=== PATIENT | male | born 1970 | race Caucasian/White ===

== ENCOUNTER 2020-02-09 | Outpatient (REF) | payer MEDICAID, SELFPAY ==
[2020-02-18 10:51] LABS: FIT Int Ctl YES; FIT1 NEGATIVE (NEGATIVE); FIT2 NEGATIVE (NEGATIVE)
== END 2020-02-09 00:01 ==
LOC: HO.LNP
PROVIDERS: Visit Provider Internal Medicine Gastroenterology
DX: Z12.11 Encounter for screening for malignant neoplasm of colon (principal)
CPT/HCPCS: 82274

== ENCOUNTER 2020-02-18 10:15 | Outpatient (REF) | payer MEDICAID, SELFPAY | END 2020-02-18 10:16 | disposition home or self-care (01) | LOC: HO.LNP 10:15 | PROVIDERS: Visit Provider Internal Medicine Gastroenterology | DX: Z13.89 Encounter for screening for other disorder (principal) ==

== ENCOUNTER 2020-03-30 16:11 | Outpatient (REF) | payer MEDICAID, SELFPAY ==
[2020-03-30 16:39] LABS: MANUAL DIFF FLAG NO
[2020-03-30 16:41] LABS: Basophils Percent Auto 0.4 % (0-2); Eosinophils Percent Auto 0.6 % (0-4); Hematocrit 33.8 % (42-52); Hemoglobin 11.8 g/dl (14.0-18.0); Imm Gran Abs Auto 0.02 X10*3/uL (0.00-0.03); Imm Gran Pct Auto 0.4 % (0.0-0.4); Lymphocytes Absolute Auto 1.5 X10*3/uL (1.2-4.9); Lymphocytes Percent Auto 30.8 % (20-40); Mean Corpuscular HGB Conc 34.9 g/dl (31.0-36.0); Mean Corpuscular Hemoglobin 31.1 pg (27.0-33.0); Mean Corpuscular Volume 88.9 fL (80-98); Mean Platelet Volume 9.7 fL (9.4-12.4); Monocytes Absolute Auto 0.6 X10*3/uL (0.1-1.2); Monocytes Percent Auto 11.6 % (2-11); Neutrophils Absolute Auto 2.7 X10*3/uL (2.0-8.3); Neutrophils Percent Auto 56.2 % (45-73); Red Cell Distribution Width 14.6 % (11.0-16.0); White Blood Count 4.8 X10*3/uL (4.8-10.8)
[2020-03-30 16:46] LABS: INTERNATIONAL NORM RATIO 1.4 (0.9-1.1); Prothrombin Time 16.5 SEC (10.8-13.0)
[2020-03-30 17:02] LABS: Platelet Count 69 X10*3/uL (160-400)
[2020-03-30 17:08] LABS: Alanine Aminotransferase 34 U/L (0-40); Albumin Level 3.4 g/dL (3.5-5.0); Alkaline Phosphatase 176 U/L (39-117); Anion Gap 10 (12-20); Aspartate Amino Transferase 127 U/L (5-37); Bilirubin Total 1.6 mg/dL (0.0-1.0); Blood Urea Nitrogen 4 mg/dL (9-16); Calcium 8.2 mg/dL (8.4-10.2); Carbon Dioxide 28 mmol/L (22-29); Chloride 105 mmol/L (96-108); Estimated Glomerular Filt Rate > 60; Glucose Random 117 mg/dL (60-115); Potassium 3.5 mmol/l (3.3-5.1); Sodium 139 mmol/L (135-145); Total Protein 7.9 g/dL (6.5-8.0)
[2020-03-30 17:26] LABS: Gamma Glutamyl Transpeptidase 600 U/L (11-51)
[2020-03-30 17:28] LABS: Ferritin 32 ng/mL (20-250)
[2020-03-30 17:31] LABS: Vitamin B12 622 pg/mL (200-900)
[2020-03-31 07:55] LABS: Hepatitis A Antibody IgG REACTIVE (Nonreactive); ~Hepatitis A Antibody IgG 4.32 S/CO (0.00-0.99)
[2020-03-31 07:56] LABS: HBc Num1 0.15 S/CO (0.00-0.79); HBsAGNum1 0.23 S/CO (0.00-0.99); Hepatitis B Core Antibody Nonreactive (Nonreactive); Hepatitis B Surface Antigen Negative (Negative)
[2020-03-31 08:12] LABS: HBS Num1 > 1000.00 mIU/mL (0-7.99); ~HepC Num1 0.71 S/CO (0.00-0.79); ~Hepatitis B Surface Antibody REACTIVE (Nonreactive); ~Hepatitis C Antibody Nonreactive (Nonreactive)
== END 2020-03-30 16:12 | disposition home or self-care (01) ==
LOC: HO.LAB 16:11
PROVIDERS: Visit Provider Internal Medicine Gastroenterology
DX: K70.30 Alcoholic cirrhosis of liver without ascites (principal)
CPT/HCPCS: 36415; 80053; 82607; 82728; 82977; 85025; 85610; 86704; 86706; 86708; 86803; 87340

== ENCOUNTER → 2020-03-31 09:39 | Outpatient (BNVA) | payer MEDICAID, SELFPAY | PROVIDERS: PCP Internal Medicine; Referring Provider Internal Medicine; Visit Provider Internal Medicine Gastroenterology | DX: Z76.89 Persons encountering health services in other specified circumstances (principal) ==

== ENCOUNTER → 2020-04-27 14:35 | Outpatient (BNVA) | payer MEDICAID, SELFPAY | PROVIDERS: PCP Internal Medicine; Referring Provider Internal Medicine; Visit Provider Surgery Vascular Surgery | DX: I83.12 Varicose veins of left lower extremity with inflammation (principal) | CPT/HCPCS: 99202 ==

== ENCOUNTER 2020-05-31 10:32 | Outpatient (REF) | payer MEDICAID, SELFPAY ==
--- NOTE | 2020-05-31 10:36 | US_ITS ---
EXAMINATION: RIGHT and LEFT LOWER EXTREMITY VENOUS ULTRASOUND (Reflux Exam) CLINICAL INDICATION: leg pain and varicose veins. COMPARISON: None. TECHNIQUE: Color flow triplex imaging and compression Doppler was performed to evaluate both the deep and the superficial systems bilaterally. To evaluate the superficial system, the examination was performed in the upright position. Color-flow Doppler ultrasound and compression ultrasound were utilized. In addition, maneuvers were utilized to demonstrate reflux. FINDINGS: 1. DEEP VENOUS ULTRASOUND OF THE RIGHT LOWER EXTREMITY: Respiratory variation, normal compression and augmented flow are noted in the right common femoral vein as well as the right popliteal vein and there is no evidence of deep venous thrombosis at these locations. There is reflux in the common femoral, mid femoral and popliteal vein measuring 1.9 seconds, 2.5 seconds and 1.7 seconds respectively. There is no evidence of a 4.4 x 2.5 x 3.7 Byers's cyst. 2. SUPERFICIAL ULTRASOUND WITH DOPPLER OF RIGHT LOWER EXTREMITY: The right great saphenous vein at the saphenofemoral junction measures 6 mm, at the mid thigh 4 mm, [id number] 4 mm, couvb-kyo-[id number] 3 mm, at mid calf 3 mm and at the ankle measures 3 mm. There is a diffuse right greater saphenous vein reflux measuring maximum 3.3 seconds at the calf and ankle. The right small saphenous vein measures 1 - 4 mm and shows no reflux. There is a organic section technical lead in the proximal thigh that measures 5 mm and demonstrates 2.6 seconds reflux. There is a organic section technical lead in the proximal calf that measures 3 mm and demonstrates 1.1 seconds reflux. There are varicose veins measure 3 mm at the knee demonstrate 2.7 reflux and 3 mm in the proximal and distal calf that demonstrate 3.6 and 3.5 second reflux. 3. DEEP VENOUS ULTRASOUND OF THE LEFT LOWER EXTREMITY: Respiratory variation, normal compression and augmented flow are noted in the left common femoral vein as well as the left popliteal vein and there is no evidence of deep venous thrombosis at these locations. There is a reflux in the mid femoral vein measuring 2.3 seconds. There is no evidence of a Byers's cyst. 4. SUPERFICIAL ULTRASOUND WITH DOPPLER OF LEFT LOWER EXTREMITY: Left great saphenous vein at the saphenofemoral junction measures 8 mm, at the mid thigh 8 mm, gdpbz-wxv-luuw 7 mm, uquys-nqt-harf 10 mm, at mid calf 3 mm and at the ankle measures 2 mm. There is left greater saphenous vein reflux from the saphenofemoral junction to the mid calf measuring maximum 3.5 seconds in the proximal thigh. There is an accessory medial greater saphenous vein that measures 1 to 7 mm and demonstrates 2.6 seconds reflux. The left small saphenous vein measures 2-4 mm and shows no reflux. There is a organic section technical lead in the calf that measures 3 mm and demonstrates 1.2 seconds reflux. There are varicosities in the calf that measure 5 mm and demonstrate 1.9 seconds reflux, 10 mm and demonstrates 3.3 seconds reflux and 7 mm and demonstrate 1.4 seconds reflux. US/US venous duplex LE BI IMPRESSION: 1. No evidence of DVT. Right common femoral, mid femoral and popliteal vein deep venous reflux and left mid femoral vein deep venous reflux. 2. Bilateral greater saphenous vein reflux.
== END 2020-05-31 10:33 | disposition home or self-care (01) ==
LOC: HO.US 10:32
PROVIDERS: Visit Provider Surgery Vascular Surgery
DX: I83.893 Varicose veins of bilateral lower extremities with other complications (principal); I83.12 Varicose veins of left lower extremity with inflammation
CPT/HCPCS: 93970

== ENCOUNTER → 2020-06-23 09:16 | Outpatient (BNVA) | payer MEDICAID, SELFPAY | PROVIDERS: Visit Provider Internal Medicine Gastroenterology ==

== ENCOUNTER → 2020-07-29 13:15 | Outpatient (BNVA) | payer MEDICAID, SELFPAY | PROVIDERS: Visit Provider Surgery Vascular Surgery | DX: I83.12 Varicose veins of left lower extremity with inflammation (principal) | CPT/HCPCS: 99212 ==

== ENCOUNTER 2020-09-07 11:41 | Outpatient (REF) | payer MEDICAID, SELFPAY | END 2020-09-07 11:42 | disposition home or self-care (01) | LOC: HO.LAB 11:41 | PROVIDERS: Visit Provider Internal Medicine | DX: Z20.822 Contact with and (suspected) exposure to COVID-19 (principal) | CPT/HCPCS: C9803; U0003; U0005 ==

== ENCOUNTER 2020-09-09 11:47 | Outpatient (REF) | payer MEDICAID, SELFPAY | END 2020-09-09 11:48 | disposition home or self-care (01) | LOC: HO.LAB 11:47 | PROVIDERS: Visit Provider Internal Medicine | DX: Z20.822 Contact with and (suspected) exposure to COVID-19 (principal) | CPT/HCPCS: C9803; U0003; U0005 ==

== ENCOUNTER 2020-10-09 11:56 | Emergency (ER) | payer MEDICAID, SELFPAY ==
--- NOTE | ~2020-10-09 | XR_ITS ---
EXAMINATION: XR CHEST CLINICAL INFORMATION: Rib pain. COMPARISON: None TECHNIQUE: Frontal view of the chest was obtained. FINDINGS: Subtle linear opacities are seen bilaterally. No focal trait or pleural effusions are seen. The heart and mediastinal structures are unremarkable. The visualized osseous structures are unremarkable. XR/XR chest 1V IMPRESSION: Subtle linear opacities bilaterally nonspecific projectional or could represent chronic changes. An atypical infectious/inflammatory process could not be completely excluded. Correlate clinically. No acute osseous abnormality.
[2020-10-09 12:47] VITALS: BP 117/72; BP 122/86; PULSE 74; PULSE 83; RESP 16; TEMP 36.7; O2SAT 97; BMI 27.0
== END 2020-10-09 15:29 | disposition left against medical advice (07) ==
LOC: HO.ED 15:28
PROVIDERS: Emergency Provider Emergency Medicine
DX: H92.01 Otalgia, right ear (principal); R07.81 Pleurodynia
CPT/HCPCS: 71045; 99282

== ENCOUNTER 2020-12-19 16:32 | Emergency (ER) | payer MEDICAID, SELFPAY ==
--- NOTE | ~2020-12-19 | XR_ITS ---
EXAMINATION: XR KNEE, LEFT CLINICAL INFORMATION: Fall. COMPARISON: None TECHNIQUE: Four views of the left knee. FINDINGS: Bones and soft tissues are normal. No fracture or joint effusion. Alignment is anatomic. Joint spaces are well maintained. No abnormal soft tissue calcification. XR/XR knee LT 4V IMPRESSION: Normal left knee.
--- NOTE | ~2020-12-19 | XR_ITS ---
EXAMINATION: XR KNEE, RIGHT CLINICAL INFORMATION: Fall. COMPARISON: None TECHNIQUE: Four views of the right knee. FINDINGS: Bones and soft tissues are normal. No fracture or joint effusion. Alignment is anatomic. Joint spaces are well maintained. No abnormal soft tissue calcification. XR/XR knee RT 4V IMPRESSION: Unremarkable examination.
--- NOTE | ~2020-12-19 | CT_ITS ---
EXAMINATION: CT HEAD WITHOUT CONTRAST CT CERVICAL SPINE WITHOUT CONTRAST CLINICAL INFORMATION: Fall. COMPARISON: CT head November 27, 2014 TECHNIQUE: Imaging was performed from the skull base to vertex without intravenous administration of contrast. In addition, helical noncontrast CT imaging was acquired through the cervical spine and source images were reviewed along with axial reconstructions and sagittal and coronal MPRs. [This CT examination was performed using dose optimization techniques as appropriate, variously including the following: *Automated exposure control *Adjustment of mA and/or kV according to patient size (this includes techniques or standardized protocols for targeted exams where dose is matched to indication/reason for exam; i.e. extremities or head) *Use of iterative reconstruction technique] DLP: 1047 mGy-cm FINDINGS: HEAD: No intracranial mass, hemorrhage, or midline shift is visualized. The ventricles and sulci are proportional. No extra-axial collections are identified. The paranasal sinuses and mastoid air cells are well aerated. CERVICAL SPINE: There is no evidence of acute cervical spine fracture. Vertebral bodies remain normal in height. Cervical vertebrae have normal alignment. There is multilevel degenerative spondylosis of the cervical spine with disc height narrowing and endplate spurs and facet joint arthrosis No pre- or paravertebral soft tissue abnormality is identified. Limited assessment of the lung apices is unremarkable. CT/CT head/brain wo con IMPRESSION: 1. No acute intracranial pathology. 2. No CT evidence of acute cervical spine fracture or traumatic subluxation
--- NOTE | ~2020-12-19 | XR_ITS ---
EXAMINATION: XR SHOULDER, LEFT CLINICAL INFORMATION: Fall. COMPARISON: None TECHNIQUE: Three views of the left shoulder. FINDINGS: The bones and soft tissues are normal. No fracture. Glenohumeral and acromioclavicular alignment is anatomic with normal joint space. No abnormal soft tissue calcifications. XR/XR shoulder LT min 2V IMPRESSION: Normal left shoulder.
--- NOTE | ~2020-12-19 | XR_ITS ---
EXAMINATION: XR CHEST CLINICAL INFORMATION: Fall. COMPARISON: Chest x-ray October 09, 2020 TECHNIQUE: Frontal view of the chest was obtained. 1700 hours FINDINGS: No significant abnormality is noted involving the heart, lungs, mediastinum, bony thorax or soft tissues. XR/XR chest 1V IMPRESSION: Unremarkable examination.
--- NOTE | ~2020-12-19 | CT_ITS ---
EXAMINATION: CT HEAD WITHOUT CONTRAST CT CERVICAL SPINE WITHOUT CONTRAST CLINICAL INFORMATION: Fall. COMPARISON: CT head November 27, 2014 TECHNIQUE: Imaging was performed from the skull base to vertex without intravenous administration of contrast. In addition, helical noncontrast CT imaging was acquired through the cervical spine and source images were reviewed along with axial reconstructions and sagittal and coronal MPRs. [This CT examination was performed using dose optimization techniques as appropriate, variously including the following: *Automated exposure control *Adjustment of mA and/or kV according to patient size (this includes techniques or standardized protocols for targeted exams where dose is matched to indication/reason for exam; i.e. extremities or head) *Use of iterative reconstruction technique] DLP: 1047 mGy-cm FINDINGS: HEAD: No intracranial mass, hemorrhage, or midline shift is visualized. The ventricles and sulci are proportional. No extra-axial collections are identified. The paranasal sinuses and mastoid air cells are well aerated. CERVICAL SPINE: There is no evidence of acute cervical spine fracture. Vertebral bodies remain normal in height. Cervical vertebrae have normal alignment. There is multilevel degenerative spondylosis of the cervical spine with disc height narrowing and endplate spurs and facet joint arthrosis No pre- or paravertebral soft tissue abnormality is identified. Limited assessment of the lung apices is unremarkable. CT/CT cervical spine wo con IMPRESSION: 1. No acute intracranial pathology. 2. No CT evidence of acute cervical spine fracture or traumatic subluxation
--- NOTE | 2020-12-19 16:40 | ED_ITS ---
HPI - Fall General Chief Complaint: General Medical Stated Complaint: fall/ L shoulder pain Time Seen by Provider: 12/19/20 16:39 Source: patient, EMS and visual specialist Mode of arrival: EMS Limitations: no limitations History of Present Illness HPI Narrative: + ETOH complaint: fall Onset (ago): minute(s) Fall from: standing Fall witnessed: yes, by family Place fall occurred: home Loss of consciousness: none Prolonged down time: no Symptoms prior to fall: none Context: tripped/slipped Location of injury - extremities: left: shoulder and bilateral: knee Severity: mild Quality: dull Associated symptoms (after fall): denies Related Data Home Medications Medication Instructions Recorded Confirmed No Known Home Meds 03/31/20 06/23/20 Allergies Allergy/AdvReac Type Severity Reaction Status Date / Time No Known Allergies Allergy Verified 10/09/20 12:46 Review of Systems Review of Systems: Constitutional : No Fever, No Chills ENT/Mouth : No Ear Pain, No Hoarseness, No sore throat Eyes: No Eye Pain, No Swelling, No Redness, No Foreign Body Cardiovascular : No Chest Pain, No SOB Respiratory : No Cough, No Dyspnea Gastrointestinal : No Nausea, No Vomiting, No Diarrhea, No abdominal Pain Genitourinary : No Dysuria, No Hematuria Musculoskeletal : positive joint pain, No Myalgias, No Joint Swelling Skin : No Skin lacerations, No rash Neuro : No Weakness, No Numbness, No Loss of Consciousness, No Dizziness, No Headache Psych : No Anxiety/Panic, No Depression Heme/Lymph: no easy bruising, no Lymphadenopathy Endocrine : No Polyuria, No Polydipsia All other systems reviewed and are negative FOR[facility]LY [facility] Past Medical History Attestation statement: The following information was validated with the patient. Medical History Alcohol abuse Cirrhosis, alcoholic H/O myocardial infarction, greater than 8 weeks Pancytopenia Family History Family History Father History of throat cancer Mother Hx of cancer of lung Stroke Maternal Grandmother Diabetes Social History Social History (Updated 12/19/20 @ 16:50 by Maday Leos DO) Household Members: Spouse and Children Alcohol intake: current Alcohol intake frequency: 3 or more drinks per day Alcohol type: beer Patient Tobacco Use Status: Current someday Tobacco user Use of substances other than those prescribed or required for medical reasons: No Advance Directives: No Advance Directives Information Provided: No Current occupational status: unemployed Physical Exam Vital Signs: Vital Signs: Last Vital Signs Temp 98.2 F 12/19/20 16:44 Pulse 80 12/19/20 16:44 Resp 18 12/19/20 16:44 BP 115/75 12/19/20 16:44 Pulse Ox 95 12/19/20 16:44 Body Mass Index 26.3 Appearance: Alert. Oriented X3. No acute distress. Eyes: Pupils equal, round and reactive to light. ENT: Pharynx normal. Autraumatic Neck: Normal inspection. Neck supple. CVS: Normal heart rate and rhythm. Pulses normal. Chest: ttp along L clavicle and L AC joint Respiratory: No respiratory distress. Breath sounds normal. Abdomen: Soft and nontender. Skin: Skin warm and dry. Normal skin color. Normal skin turgor. Extremities: No lower extremity edema. No calf ttp L knee and R knee reports ttp no sig trauma or swelling seen Neuro: Oriented X 3. No motor deficit. No sensory deficit. Course Course Course Narrative: hx of low plts in the past related to cirrhosis no bleeding reports, H/H stable plan to DC home to family members MDM - Fall MDM Narrative Medical decision making narrative: 50 yo male with hx of cirrhosis, pancytopenia, alcohol abuse comes in with mechanical fall post ETOH - denies head trauma no LOC per family will obtain basic labs, CT head/cspine given ETOH abuse as well as xrays of L shoulder, chest, bilateral knees, dispo per results and findings. Lab Data Result diagrams: 12/19/20 17:42 Labs: Lab Results 12/19/20 Range/Units 17:42 WBC 3.7 L (4.8-10.8) X10*3/uL RBC 3.57 L (4.60-5.80) X10*6/uL Hgb 11.4 L (14.0-18.0) g/dl Hct 31.5 L (42-52) % MCV 88.2 (80-98) fL MCH 31.9 (27.0-33.0) pg MCHC 36.2 H (31.0-36.0) g/dl RDW 14.7 (11.0-16.0) % Plt Count 34 L D (160-400) X10*3/uL MPV 10.6 (9.4-12.4) fL Absolute Nucleated RBC 0.000 (0.0-0.012) X10*3/uL Nucleated RBC % (auto) 0.0 (0.0-0.2) /100WBC Discharge Plan Discharge Clinical Impression: Alcohol abuse Fall Qualifiers: Encounter type: initial encounter Qualified Code(s): W19.XXXA - Unspecified fall, initial encounter Patient Disposition: Home, Self-Care Instructions: Abuse of Alcohol (ED), Fall Prevention (ED) Additional Instructions: return to ED for any worsening symptoms or concerns XRAYS OF BOTH KNEES, LEFT SHOULDER, CHEST WERE NEGATIVE FOR FRACTURE CT SCAN OF HEAD AND NECK WERE ALSO NEGATIVE FOR TRAUMA PLATELETS ARE LOW USUAL AROUND 34,000 PLEASE FOLLOW UP WITH YOUR DOCTOR Prescriptions: No Action No Known Home Meds RF: 0 Print Language: Romansh
[2020-12-19 16:44] VITALS: BP 115/75; BP 126/76; PULSE 72; PULSE 80; RESP 18; TEMP 36.8; O2SAT 95; O2SAT 96; BMI 26.3
--- NOTE | 2020-12-19 17:25 | PC.NURSE ---
pt returned from radiology
[2020-12-19 17:48] LABS: Hematocrit 31.5 % (42-52); Hemoglobin 11.4 g/dl (14.0-18.0); Mean Corpuscular HGB Conc 36.2 g/dl (31.0-36.0); Mean Corpuscular Hemoglobin 31.9 pg (27.0-33.0); Mean Corpuscular Volume 88.2 fL (80-98); Mean Platelet Volume 10.6 fL (9.4-12.4); Red Blood Count 3.57 X10*6/uL (4.60-5.80); Red Cell Distribution Width 14.7 % (11.0-16.0); White Blood Count 3.7 X10*3/uL (4.8-10.8)
[2020-12-19 17:49] LABS: Platelet Count 34 X10*3/uL (160-400)
[2020-12-19 17:54] LABS: INTERNATIONAL NORM RATIO 1.5 (0.9-1.1); Prothrombin Time 17.1 SEC (9.9-13.0)
[2020-12-19 17:57] LABS: Partial Thromboplastin Time 37.5 SEC (24.1-38.0)
--- NOTE | 2020-12-19 17:58 | PC.NURSE ---
patients relative bradly called to check in on patient, she stated she maybe called for him to have a ride home [phone]
[2020-12-19 18:13] VITALS: BP 121/72; PULSE 77; RESP 18; TEMP 36.6; O2SAT 95
--- NOTE | 2020-12-19 18:22 | PC.NURSE ---
family member called to come give pt a ride home
== END 2020-12-19 18:42 | disposition home or self-care (01) ==
PROVIDERS: Emergency Provider Emergency Medicine
DX: S49.92XA Unspecified injury of left shoulder and upper arm, initial encounter (principal); M25.512 Pain in left shoulder; M25.562 Pain in left knee; M25.561 Pain in right knee; G44.309 Post-traumatic headache, unspecified, not intractable; M54.2 Cervicalgia; F17.200 Nicotine dependence, unspecified, uncomplicated; F10.10 Alcohol abuse, uncomplicated; W01.0XXA Fall on same level from slipping, tripping and stumbling without subsequent striking against object, initial encounter; Y93.9 Activity, unspecified; Y92.9 Unspecified place or not applicable; Y99.9 Unspecified external cause status; Z71.6 Tobacco abuse counseling; Y90.9 Presence of alcohol in blood, level not specified
CPT/HCPCS: 36415; 70450; 71045; 72125; 73030; 73564; 85027; 85610; 85730; 99284

== ENCOUNTER 2021-08-21 13:34 | Emergency (ER) | payer MEDICAID, SELFPAY ==
--- NOTE | ~2021-08-21 | XR_ITS ---
EXAMINATION: XR CHEST CLINICAL INFORMATION: Chest pain COMPARISON: August 19, 2020 TECHNIQUE: AP portable view of the chest was obtained. FINDINGS: No significant abnormality is noted involving the heart, lungs, mediastinum, bony thorax or soft tissues. XR/XR chest 1V IMPRESSION: No acute disease.
--- NOTE | ~2021-08-21 | CT_ITS ---
EXAMINATION: CTA GI BLEED ABDOMEN AND PELVIS CLINICAL INFORMATION: Vomiting blood, melena. Question portal hypertension COMPARISON: Ultrasound abdomen pelvis 12/17/2019. TECHNIQUE: 5 mm thin axial images of abdomen and pelvis were obtained without and with contrast. Subsequently 2 mm thin sagittal and coronal images were obtained. DLP 1306. FINDINGS: Lung bases: The lung bases are clear. The heart size is normal. No pericardial effusion seen. The liver, gallbladder and ducts: The liver is mildly attenuated but normal size and slightly lobulated contour. Postcontrast there is no abnormal enhancing lesion or mass. There is no intrahepatic ductal dilatation. The gallbladder is nondilated without any radiopaque calculi. There are large varicose veins in the joana hepatis with collateral extending inferiorly into the pelvis. Spleen: The spleen is mildly enlarged measuring 15 cm in craniocaudad length. Pancreas: Unremarkable. Adrenal glands: Both adrenal glands are symmetrical and normal. Kidneys and ureters: Both kidneys are normal size, shape and position. No focal lesion seen. There is no hydronephrosis.. Lymphovascular structures: The abdominal aorta is normal caliber. IVC is nondilated. There are collateral vessels in the right abdomen as well as in the splenic hilum. Very small collaterals are seen in the gastroesophageal junction. The superior mesenteric vein is distended and tortuous with significant collaterals. The splenic vein is patent. . The right renal vein is enlarged likely from collateral circulation GI tract: The stomach is nondilated. The small bowel loops are unremarkable. There is scattered gas and stool in the colon without distention. The appendix is normal caliber. There is mild mesenteric haziness likely secondary to edema or venous congestion. No contrast extravasation seen in the GI tract to suspect any active focus of bleed. Few scattered diverticuli seen in the sigmoid colon. The abdominal wall appears unremarkable. Pelvis: The urinary bladder is nondistended dilated and appears unremarkable. The prostate gland is normal. There is no free fluid seen. Bone windows reveal degenerative disc changes L5-S1 disc level. No aggressive lytic or sclerotic process seen. CT/CT gi bleed abd pel wo/w con IMPRESSION: Cirrhotic liver with splenomegaly. Increased portal venous hypertension resulting in significant collaterals in the right abdomen and large right renal vein extending into the IVC. Very small collaterals are seen in the gastroesophageal region and retrocrural region. There is no active contrast extravasation seen to suspect any GI bleed at this time. Mesenteric haziness likely secondary to venous congestion.
[2021-08-21 13:56] VITALS: BP 146/87; PULSE 112; RESP 18; TEMP 37.7; O2SAT 98; BMI 27.0
--- NOTE | 2021-08-21 16:05 | ECG_ITS ---
Test Reason : CHEST PAIN Blood Pressure : / mmHG Vent. Rate : 072 BPM Atrial Rate : 072 BPM P-R Int : 160 ms QRS Dur : 098 ms QT Int : 398 ms P-R-T Axes : 060 -26 040 degrees QTc Int : 435 ms Normal sinus rhythm with sinus arrhythmia Normal ECG No previous ECGs available Referred By: Brea Nichols Electronically Signed By:ROSITA POLLOCK MD
--- NOTE | 2021-08-21 16:11 | ED_ITS ---
HPI - General Adult General Chief complaint: General Medical Stated complaint: bleeding ears nose diff breathing Time Seen by Provider: 08/21/21 15:54 Source: patient Mode of arrival: ambulatory Limitations: language barrier History of Present Illness HPI narrative: 50-year-old male presents with complaints of nasal bleeding, vomiting blood, abdominal pain, hematuria, and bloody stools. States that he drinks rum on a daily basis and has a history of alcoholic cirrhosis. Patient states he does not feel well, his tremors and occasionally diaphoretic. Onset (ago): day(s) (2) Location: abdomen Radiation: non-radiation Severity: moderate Severity scale (1-10): 6 Quality: burning and aching Pain Consistency: constant Relieving factors: none Exacerbating factors: eating and other (Vomiting) Associated symptoms: diaphoresis, fever/chills, loss of appetite and nausea/vomiting Treatments prior to arrival: none Related Data Home Medications Medication Instructions Recorded Confirmed No Known Home Meds 03/31/20 06/23/20 Allergies Allergy/AdvReac Type Severity Reaction Status Date / Time No Known Allergies Allergy Verified 10/09/20 12:46 Review of Systems Review of Systems: Constitutional: No Weight loss, No Fever, positive Chills, No Night Sweats, positive Fatigue, No Malaise, positive jaundice ENT/Mouth: Positive nose bleed, No Hearing loss, No Ear Pain, No Nasal Congestion, No Sinus Pain, No Hoarseness, No sore throat, No Rhinorrhea, No Swa llowing Difficulty Eyes: No Eye Pain, No Swelling, No Redness, No Foreign Body, No Discharge, No Vi serg Changes Cardiovascular: No Chest Pain, No SOB, No Dyspnea on Exertion, No Orthopnea, No Edema, positive Palpitations Respiratory: Positive Cough, No Sputum, No Wheezing, No Smoke Exposure, No Dyspnea, positive hemoptysis Gastrointestinal: Positive Nausea, Positive Vomiting, positive Diarrhea, positive abdominal Pain, positive Hematochezia, positive Melena, positive hematemesis Genitourinary: no irregular bleeding, positive Dysuria, No Urinary Frequency, positive Hematuria, No Urinary Incontinence, No Urgency, positive Flank Pain, No Urinary Flow Changes, No Hesitancy Musculoskeletal: No joint pain, positive Myalgias, No Joint Swelling Skin: No Skin Lesions, No rash Neuro: No Weakness, No Numbness, No Paresthesias, No Loss of Consciousness, No Dizziness, No Headache Psych: No Anxiety/Panic, No Depression, No SI/HI/AH/VH, No Social Issues Heme/Lymph: No Bruising, No Bleeding,No Lymphadenopathy Endocrine: No Polyuria, No Polydipsia, No Temperature Intolerance Yes all other systems are reviewed and are negative [facility] Past Medical History Attestation statement: The following information was validated with the patient. Source: old records reviewed Medical History Alcohol abuse Cirrhosis, alcoholic H/O myocardial infarction, greater than 8 weeks Pancytopenia Family History Family History Father History of throat cancer Mother Hx of cancer of lung Stroke Maternal Grandmother Diabetes Social History Social History Household Members: Spouse and Children Alcohol intake: current Alcohol intake frequency: 3 or more drinks per day Alcohol type: beer Patient Tobacco Use Status: Current someday Tobacco user Advance Directives: No Advance Directives Information Provided: Yes Current occupational status: unemployed Physical Exam ED Vital Signs: Vital Signs - 24 hr 08/21/21 13:56 08/21/21 16:51 08/21/21 18:00 Temperature 99.8 F 98.2 F Pulse Rate 112 H 87 92 Respiratory Rate 18 16 12 Blood Pressure 146/87 H 154/79 H 152/85 H Pulse Oximetry 98 99 100 08/21/21 19:59 Temperature Pulse Rate 100 Respiratory Rate 18 Blood Pressure 149/75 H Pulse Oximetry 99 BMI result Body Mass Index 27.0 Appearance: Alert. Oriented X3. Moderate distress. Eyes: Pupils equal, round and reactive to light. Sclera icteric. ENT: Pharynx normal. Dry mucous membranes. Neck: Normal inspection. Neck supple. JVD. CVS: Tachycardic heart rate and rhythm. Apical pulse equal pulses to extremities. Respiratory: No respiratory distress. Breath sounds normal. Abdomen: Soft and diffusely tender. Hepatomegaly noted. Skin: Skin warm and dry. Normal skin color. Normal skin turgor. Extremities: No lower extremity edema. Moves all extremities against resistance. Neuro: No motor deficit. No sensory deficit. Cranial nerves 2-12 intact. No asterixis is noted. Course Course Course Narrative: 50-year-old male presents with epistaxis, hematemesis, intermittent rectal bleeding, abdominal pain, jaundice, please to be withdrawing from alcohol at this time. He is also complaining of hematuria as well as bilateral flank pain. Patient reports that he drinks several pt of rum on a daily basis. Has known pancytopenia with alcoholic cirrhosis. Will order CT abdomen pelvis for GI protocol. Will give 2 mg of Ativan IV for withdrawal symptoms, L of fluids, and Protonix IV push. 18:40 influenza a positive 19:20 CT abdomen pelvis shows cirrhotic liver with splenomegaly. Increased portal venous hypertension, no indication of bleed. Chest x-ray is negative. 20:00 discussion with patient and family regarding severity of his alcoholic cir rhosis and need follow-up with Gastroenterology. 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 Google translate utilized for discharge instructions.Patient verbalized understanding of and agrees to plan of care to discharge home. Verbalized understanding of signs and symptoms indicating need for emergent intervention Medical Decision Making Differential Diagnosis Differential Diagnosis: GI bleed, portal hypertensive gastropathy, cirrhosis, gastric varices Medical Records Medical records reviewed: Yes I reviewed the patient's medical records. Lab Data Lab results reviewed: Yes I reviewed the patient's lab results. Result diagrams: 08/21/21 16:29 08/21/21 16:29 Labs: Lab Results 08/21/21 08/21/21 08/21/21 Range/Units 16:29 16:29 16:29 WBC 2.7 L (4.8-10.8) X10*3/uL RBC 3.51 L (4.60-5.80) X10*6/uL Hgb 10.2 L (14.0-18.0) g/dl Hct 28.8 L (42.0-52.0) % MCV 82.1 (80.0-98.0) fL MCH 29.1 (27.0-33.0) pg MCHC 35.4 (31.0-36.0) g/dl RDW 15.8 (11.0-16.0) % Plt Count 26 L (160-400) X10*3/uL MPV 10.2 (9.4-12.4) fL Absolute Nucleated RBC 0.000 (0.0-0.012) X10*3/uL Nucleated RBC % (auto) 0.0 (0.0-0.2) /100WBC PT 19.8 H (9.9-13.0) SEC INR 1.7 H (0.9-1.1) APTT 38.2 H (24.1-38.0) SEC Sodium 134 L (135-145) mmol/L Potassium 3.7 (3.3-5.1) mmol/L Chloride 104 (96-108) mmol/L Carbon Dioxide 18 L (22-29) mmol/L Anion Gap 16 (12-20) BUN 7 L (9-16) mg/dL Creatinine 0.74 (0.5-1.4) mg/dL Estim Creat Clear Calc 112.9 Estimated GFR > 60 Random Glucose 84 (60-115) mg/dL Lactic Acid (0.5-2.0) mmol/L Calcium 8.3 L (8.4-10.2) mg/dL Magnesium 1.6 (1.6-2.6) mg/dL Total Bilirubin 2.6 H (0.0-1.0) mg/dL Direct Bilirubin 1.7 H (0.0-0.5) mg/dL AST 143 H (5-37) U/L ALT 34 (0-40) U/L Alkaline Phosphatase 121 H D (39-117) U/L Ammonia (13-55) umol/L Total Creatine Kinase 480 H (38-174) U/L Troponin I High Sens (<3.5-35.0) ng/L Total Protein 7.8 (6.5-8.0) g/dL Albumin 3.0 L (3.5-5.0) g/dL Lipase 49 (8-78) U/L Stool Occult Blood (NEGATIVE) Ethyl Alcohol mg/dL Influenza Type A (PCR) (Negative) Influenza Type B (PCR) (Negative) RSV RNA Qual (PCR) (Negative) SARS-CoV-2 RNA (RT-PCR) (Negative) 08/21/21 08/21/21 08/21/21 Range/Units 16:29 16:29 16:30 WBC (4.8-10.8) X10*3/uL RBC (4.60-5.80) X10*6/uL Hgb (14.0-18.0) g/dl Hct (42.0-52.0) % MCV (80.0-98.0) fL MCH (27.0-33.0) pg MCHC (31.0-36.0) g/dl RDW (11.0-16.0) % Plt Count (160-400) X10*3/uL MPV (9.4-12.4) fL Absolute Nucleated RBC (0.0-0.012) X10*3/uL Nucleated RBC % (auto) (0.0-0.2) /100WBC PT (9.9-13.0) SEC INR (0.9-1.1) APTT (24.1-38.0) SEC Sodium (135-145) mmol/L Potassium (3.3-5.1) mmol/L Chloride (96-108) mmol/L Carbon Dioxide (22-29) mmol/L Anion Gap (12-20) BUN (9-16) mg/dL Creatinine (0.5-1.4) mg/dL Estim Creat Clear Calc Estimated GFR Random Glucose (60-115) mg/dL Lactic Acid 1.8 (0.5-2.0) mmol/L Calcium (8.4-10.2) mg/dL Magnesium (1.6-2.6) mg/dL Total Bilirubin (0.0-1.0) mg/dL Direct Bilirubin (0.0-0.5) mg/dL AST (5-37) U/L ALT (0-40) U/L Alkaline Phosphatase (39-117) U/L Ammonia 39 (13-55) umol/L Total Creatine Kinase (38-174) U/L Troponin I High Sens (<3.5-35.0) ng/L Total Protein (6.5-8.0) g/dL Albumin (3.5-5.0) g/dL Lipase (8-78) U/L Stool Occult Blood NEGATIVE (NEGATIVE) Ethyl Alcohol mg/dL Influenza Type A (PCR) (Negative) Influenza Type B (PCR) (Negative) RSV RNA Qual (PCR) (Negative) SARS-CoV-2 RNA (RT-PCR) (Negative) 08/21/21 08/21/21 08/21/21 Range/Units 16:30 16:30 16:59 WBC (4.8-10.8) X10*3/uL RBC (4.60-5.80) X10*6/uL Hgb (14.0-18.0) g/dl Hct (42.0-52.0) % MCV (80.0-98.0) fL MCH (27.0-33.0) pg MCHC (31.0-36.0) g/dl RDW (11.0-16.0) % Plt Count (160-400) X10*3/uL MPV (9.4-12.4) fL Absolute Nucleated RBC (0.0-0.012) X10*3/uL Nucleated RBC % (auto) (0.0-0.2) /100WBC PT (9.9-13.0) SEC INR (0.9-1.1) APTT (24.1-38.0) SEC Sodium (135-145) mmol/L Potassium (3.3-5.1) mmol/L Chloride (96-108) mmol/L Carbon Dioxide (22-29) mmol/L Anion Gap (12-20) BUN (9-16) mg/dL Creatinine (0.5-1.4) mg/dL Estim Creat Clear Calc Estimated GFR Random Glucose (60-115) mg/dL Lactic Acid (0.5-2.0) mmol/L Calcium (8.4-10.2) mg/dL Magnesium (1.6-2.6) mg/dL Total Bilirubin (0.0-1.0) mg/dL Direct Bilirubin (0.0-0.5) mg/dL AST (5-37) U/L ALT (0-40) U/L Alkaline Phosphatase (39-117) U/L Ammonia (13-55) umol/L Total Creatine Kinase (38-174) U/L Troponin I High Sens 30.5 (<3.5-35.0) ng/L Total Protein (6.5-8.0) g/dL Albumin (3.5-5.0) g/dL Lipase (8-78) U/L Stool Occult Blood (NEGATIVE) Ethyl Alcohol 40 mg/dL Influenza Type A (PCR) POSITIVE A (Negative) Influenza Type B (PCR) NEGATIVE (Negative) RSV RNA Qual (PCR) NEGATIVE (Negative) SARS-CoV-2 RNA (RT-PCR) NEGATIVE (Negative) Imaging Data CT abdomen pelvis: Attestation: I personally reviewed and interpreted this imaging study as follows: Radiologist's impression: EXAMINATION: CTA GI BLEED ABDOMEN AND PELVIS CLINICAL INFORMATION: Vomiting blood, melena. Question portal hypertension COMPARISON: Ultrasound abdomen pelvis 12/17/2019. TECHNIQUE: 5 mm thin axial images of abdomen and pelvis were obtained without and with contrast. Subsequently 2 mm thin sagittal and coronal images were obtained. DLP 1306. FINDINGS: Lung bases: The lung bases are clear. The heart size is normal. No pericardial effusion seen. The liver, gallbladder and ducts: The liver is mildly attenuated but normal size and slightly lobulated contour. Postcontrast there is no abnormal enhancing lesion or mass. There is no intrahepatic ductal dilatation. The gallbladder is nondilated without any radiopaque calculi. There are large varicose veins in the joana hepatis with collateral extending inferiorly into the pelvis. Spleen: The spleen is mildly enlarged measuring 15 cm in craniocaudad length. Pancreas: Unremarkable. Adrenal glands: Both adrenal glands are symmetrical and normal. Kidneys and ureters: Both kidneys are normal size, shape and position. No focal lesion seen. There is no hydronephrosis.. Lymphovascular structures: The abdominal aorta is normal caliber. IVC is nondilated. There are collateral vessels in the right abdomen as well as in the splenic hilum. Very small collaterals are seen in the gastroesophageal junction. The superior mesenteric vein is distended and tortuous with significant collaterals. The splenic vein is patent. . The right renal vein is enlarged likely from collateral circulation GI tract: The stomach is nondilated. The small bowel loops are unremarkable. There is scattered gas and stool in the colon without distention. The appendix is normal caliber. There is mild mesenteric haziness likely secondary to edema or venous congestion. No contrast extravasation seen in the GI tract to suspect any active focus of bleed. Few scattered diverticuli seen in the sigmoid colon. The abdominal wall appears unremarkable. Pelvis: The urinary bladder is nondistended dilated and appears unremarkable. The prostate gland is normal. There is no free fluid seen. Bone windows reveal degenerative disc changes L5-S1 disc level. No aggressive lytic or sclerotic process seen. CT/CT gi bleed abd pel wo/w con IMPRESSION: Cirrhotic liver with splenomegaly. Increased portal venous hypertension resulting in significant collaterals in the right abdomen and large right renal vein extending into the IVC. Very small collaterals are seen in the gastroesophageal region and retrocrural region. ? There is no active contrast extravasation seen to suspect any GI bleed at this time. ? Mesenteric haziness likely secondary to venous congestion Chest x-ray: Attestation: I personally reviewed and interpreted this imaging study as follows: Radiologist's impression: EXAMINATION: XR CHEST CLINICAL INFORMATION: Chest pain COMPARISON: August 19, 2020 TECHNIQUE: AP portable view of the chest was obtained. FINDINGS: No significant abnormality is noted involving the heart, lungs, mediastinum, bony thorax or soft tissues. XR/XR chest 1V IMPRESSION: No acute disease. ? ECG Data Attestation: I personally reviewed and interpreted this ECG as follows: Prior ECG tracings: available for review Interpretation: Vent. rate 72 BPM MD interval 160 ms QRS duration 98 ms QT/QTc 398/435 ms P-R-T axes 60 -26 40 Normal sinus rhythm with sinus arrhythmia Normal ECG No previous ECGs available 21-AUG-2021 16:33:21 Discharge Plan Discharge Clinical Impression: Alcohol abuse, Cirrhosis, alcoholic, Pancytopenia, Portal hypertensive gastropathy, Influenza A Patient Disposition: Home, Self-Care Instructions: Cirrhosis (ED), Liver Disease Diet (DC), Influenza (ED), Abuse of Alcohol (ED), Portal Hypertension (ED), Alcohol Use Disorder (ED) Additional Instructions: Te evaluaron por vomitar jose. La angiograf?a por TC del abdomen y la pelvis indica cambios graves en el h?gado debido al alcoholismo. Debes dejar de beber alcohol. Debe hacer seguimiento con Gastroenterolog?a. Te remit? al Dr. Guevara. Por favor llame y solicite amira mariah para cirrosis alcoh?lica y enfermedad hep?princess. Usted ciarra positivo por influenza A. Judy muchos l?quidos. [place]. La jose que vomit? fue del sangrado nasal que tuvo antes del episodio de v?mitos. Cuca por elegir bob departamento de emergencias para chavez evaluaci?n. Por favor, farhat un seguimiento con el m?dico de atenci?n primaria seg?n sea necesario. Regrese al departamento de emergencias por cualquier s?ntoma nuevo, preocupante o que empeore. You were evaluated for vomiting blood. CT angiogram of abdomen and pelvis indicates severe changes to your liver because of alcoholism. You must stop drinking alcohol. You must follow-up with Gastroenterology. I referred you to Dr. Guevara. Please call and request an appointment for alcoholic cirrhosis and l iver disease. You tested positive for influenza A. Please drink plenty of fluids. Rest. The blood that you vomited was from the nose bleed that you had prior to the vomiting episode Thank you for choosing this emergency department for evaluation. Please follow-up with primary care physician as needed. Return to the emergency department for any new, concerning, or worsening symptoms. Prescriptions: No Action No Known Home Meds 0RF Referrals: Aime Guevara [Physician] - (Alcoholism, portal hypertensive gastropathy, cirrhosis) Interventions: ED Discharge Assessment Last Done: 08/21/21 20:36 Discharge Date/Time: 08/21/21 20:38
[2021-08-21] MEDS: 0.9 % Sodium Chloride 1,000 ML 999 ML IVCONT (16:34)
[2021-08-21 16:40] LABS: Hemoglobin 10.2 g/dl (14.0-18.0); PLT CLUMP 1; Red Cell Distribution Width 15.8 % (11.0-16.0)
[2021-08-21 16:42] LABS: Hematocrit 28.8 % (42.0-52.0); Mean Corpuscular HGB Conc 35.4 g/dl (31.0-36.0); Mean Corpuscular Hemoglobin 29.1 pg (27.0-33.0); Mean Corpuscular Volume 82.1 fL (80.0-98.0); Mean Platelet Volume 10.2 fL (9.4-12.4); Red Blood Count 3.51 X10*6/uL (4.60-5.80)
[2021-08-21 16:43] LABS: OBS Int Ctl Valid YES; OBS1 NEGATIVE (NEGATIVE)
[2021-08-21] MEDS: LORazepam 2 MG/ML VIAL 1 MG IVPUSH (16:43)
[2021-08-21] MEDS: Pantoprazole Sodium 40 MG/10 ML VIAL IVPUSH (16:43)
[2021-08-21 16:46] LABS: INTERNATIONAL NORM RATIO 1.7 (0.9-1.1); Prothrombin Time 19.8 SEC (9.9-13.0)
[2021-08-21 16:48] LABS: Ammonia 39 umol/L (13-55)
[2021-08-21 16:48] LABS: Partial Thromboplastin Time 38.2 SEC (24.1-38.0)
[2021-08-21 16:51] VITALS: BP 154/79; PULSE 87; RESP 16; O2SAT 99
[2021-08-21 16:51] LABS: Lactic Acid 1.8 mmol/L (0.5-2.0)
[2021-08-21 16:52] LABS: Ethanol 40 mg/dL
[2021-08-21 16:59] LABS: Alanine Aminotransferase 34 U/L (0-40); Alkaline Phosphatase 121 U/L (39-117); Anion Gap 16 (12-20); Aspartate Amino Transferase 143 U/L (5-37); Bilirubin Direct 1.7 mg/dL (0.0-0.5); Bilirubin Total 2.6 mg/dL (0.0-1.0); Blood Urea Nitrogen 7 mg/dL (9-16); Calcium 8.3 mg/dL (8.4-10.2); Carbon Dioxide 18 mmol/L (22-29); Chloride 104 mmol/L (96-108); Creatinine Clr Calc Pharmacy 112.9; Estimated Glomerular Filt Rate > 60; Glucose Random 84 mg/dL (60-115); Lipase 49 U/L (8-78); Magnesium 1.6 mg/dL (1.6-2.6); Potassium 3.7 mmol/L (3.3-5.1); Sodium 134 mmol/L (135-145); Total Protein 7.8 g/dL (6.5-8.0)
[2021-08-21 17:01] LABS: White Blood Count 2.7 X10*3/uL (4.8-10.8)
[2021-08-21 17:02] LABS: Platelet Count 26 X10*3/uL (160-400)
[2021-08-21 17:04] LABS: Troponin-I High Sensitivity 30.5 ng/L (<3.5-35.0)
[2021-08-21] MEDS: iohexoL 350 MG/ML 100 ML INFUS..BTL IV ×2 (17:21→17:43)
[2021-08-21 18:00] VITALS: BP 152/85; PULSE 92; RESP 12; TEMP 36.8; O2SAT 100
[2021-08-21 18:06] LABS: Influenza A PCR POSITIVE (Negative); Influenza B PCR NEGATIVE (Negative); Resp Syncy Virus RNA Qual PCR NEGATIVE (Negative); SARS COV2 PCR INHOUSE NEGATIVE (Negative)
[2021-08-21 19:59] VITALS: BP 149/75; PULSE 100; RESP 18; O2SAT 99
== END 2021-08-21 20:38 | disposition home or self-care (01) ==
PROVIDERS: Nurse Practitioner Family; Emergency Provider Emergency Medicine
DX: K76.6 Portal hypertension (principal); K31.89 Other diseases of stomach and duodenum; J10.1 Influenza due to other identified influenza virus with other respiratory manifestations; K70.30 Alcoholic cirrhosis of liver without ascites; F10.10 Alcohol abuse, uncomplicated; D61.818 Other pancytopenia; R07.9 Chest pain, unspecified; I25.2 Old myocardial infarction
CPT/HCPCS: 0241U; 71045; 74178; 80048; 80076; 82077; 82140; 82272; 82550; 83605; 83690; 83735; 84484; 85027; 85610; 85730; 87040; 93005; 96361; 96374; 96375; 99284; J2060; Q9967

== ENCOUNTER → 2021-10-11 10:32 | Outpatient (BNVA) | payer MEDICAID, SELFPAY | PROVIDERS: Referring Provider Internal Medicine; Visit Provider Nurse Practitioner | DX: Z12.11 Encounter for screening for malignant neoplasm of colon (principal); K70.30 Alcoholic cirrhosis of liver without ascites; K59.00 Constipation, unspecified; D69.6 Thrombocytopenia, unspecified; D61.818 Other pancytopenia; R11.2 Nausea with vomiting, unspecified | CPT/HCPCS: 99202; 99212 ==

== ENCOUNTER 2021-11-11 15:02 | Outpatient (REF) | payer MEDICAID, SELFPAY ==
--- NOTE | ~2021-11-11 | US_ITS ---
EXAMINATION: US VENOUS ULTRASOUND WITH DOPPLER LOWER EXTREMITY, BILATERAL CLINICAL INFORMATION: Bilateral leg pain. COMPARISON: None TECHNIQUE: Ultrasound of the deep veins is performed from the hip to the calf with compression sonography and color and pulse Doppler assessment. Spectral analysis with color-flow imaging is performed. FINDINGS: RIGHT: There is normal venous compression and respiratory variation and augmented flow. The visualized common femoral vein, superficial femoral vein, profunda femoral vein, popliteal vein, and the trifurcation region shows no evidence of deep venous thrombosis. There is no significant popliteal fossa cyst. LEFT: There is normal venous compression and respiratory variation and augmented flow. The visualized common femoral vein, superficial femoral vein, profunda femoral vein, popliteal vein, and the trifurcation region shows no evidence of deep venous thrombosis. There is no significant popliteal fossa cyst. There are prominent varicose vein seen in the left calf. If the patient's symptoms persist, followup ultrasound in 5 days 7 days might be of value to exclude proximal propagation from a non-visualized calf vein. US/US venous duplex LE BI IMPRESSION: No DVT demonstrated in the bilateral lower extremity.
== END 2021-11-11 15:03 | disposition home or self-care (01) ==
LOC: HO.US 15:02
PROVIDERS: PCP Internal Medicine; Visit Provider Internal Medicine
DX: R60.0 Localized edema (principal); M79.662 Pain in left lower leg; M79.661 Pain in right lower leg; M79.89 Other specified soft tissue disorders
CPT/HCPCS: 93970

== ENCOUNTER → 2021-11-22 11:41 | Outpatient (BNVA) | payer MEDICAID, SELFPAY | PROVIDERS: PCP Internal Medicine; Visit Provider Nurse Practitioner | DX: Z12.11 Encounter for screening for malignant neoplasm of colon (principal); K59.00 Constipation, unspecified; K70.30 Alcoholic cirrhosis of liver without ascites; R11.2 Nausea with vomiting, unspecified; D61.818 Other pancytopenia | CPT/HCPCS: 99212 ==

== ENCOUNTER 2022-07-30 18:17 | Emergency (ER) | payer MEDICAID, SELFPAY ==
--- NOTE | ~2022-07-30 | XR_ITS ---
EXAMINATION: XR CHEST CLINICAL INFORMATION: Chest pain COMPARISON: 08/21/2021 TECHNIQUE: Frontal view of the chest was obtained. FINDINGS: No significant abnormality is noted involving the heart, lungs, mediastinum, bony thorax or soft tissues. XR/XR chest 1V IMPRESSION: Unremarkable examination.
--- NOTE | 2022-07-30 19:18 | ECG_ITS ---
Test Reason : CP Blood Pressure : / mmHG Vent. Rate : 081 BPM Atrial Rate : 081 BPM P-R Int : 160 ms QRS Dur : 104 ms QT Int : 406 ms P-R-T Axes : 062 -22 051 degrees QTc Int : 471 ms Normal sinus rhythm with sinus arrhythmia Septal infarct , age undetermined Abnormal ECG When compared with ECG of 21-AUG-2021 16:33, No significant change was found Referred By: Kyle Ball Electronically Signed By:MINESH LEIGH
--- NOTE | 2022-07-30 19:21 | ED.ABDPAIN ---
HPI - Abdominal Pain General Chief Complaint: Failure to Thrive Stated Complaint: ETOH/CP Time Seen by Provider: 07/30/22 19:07 Source: patient Mode of arrival: EMS Limitations: no limitations History of Present Illness HPI narrative: Patient alcoholic brought by EMS for in the left upper abdomen patient had few drinks earlier today history of alcoholic cirrhosis no chest pain no shortness of breath no vomiting no diarrhea no abdominal distension Related Data Previous Rx's Medication Instructions Recorded omeprazole 40 mg capsule,delayed 40 mg PO DAILY 30 days #30 caps 10/11/21 release peg 3350-electrolytes 236 240 ml PO Q10M 1 day #4,000 mL 11/22/21 gram-22.74 gram-6.74 gram-5.86 gram solution (Golytely) sennosides 8.6 mg capsule (senna) 17.2 mg PO BID constipation 30 11/22/21 days #120 caps pantoprazole 40 mg tablet,delayed 40 mg PO DAILY #30 tabs 07/30/22 release (Protonix) Allergies Allergy/AdvReac Type Severity Reaction Status Date / Time No Known Allergies Allergy Verified 11/22/21 11:55 Review of Systems Review of Systems Yes all other systems are reviewed and are negative PMFSH Past Medical History Medical History Alcohol abuse Cirrhosis, alcoholic H/O myocardial infarction, greater than 8 weeks Pancytopenia Surgical History No history of previous surgery Family History Family History Father History of throat cancer Mother Hx of cancer of lung Stroke Maternal Grandmother Diabetes Social History Social History Household Members: Spouse and Children Alcohol intake: current Alcohol intake frequency: 3 or more drinks per day Alcohol type: beer Patient Tobacco Use Status: Current someday Tobacco user Advance Directives: No Advance Directives Information Provided: No Current occupational status: unemployed Physical Exam ED Vital Signs: Vital Signs - 24 hr 07/30/22 19:27 Temperature 97.8 F Pulse Rate 89 Respiratory Rate 16 Blood Pressure 91/60 Pulse Oximetry 94 Oxygen Delivery Method Room Air BMI result Body Mass Index 30.5 Appearance: Alert. Oriented X3. No acute distress. etoh++ Eyes: PERRLA, No Nystagmus icterus + ENT: Pharynx normal. Oral Mucosa moist Neck: Normal inspection. Neck supple. CVS: Normal heart rate and rhythm. Pulses normal. Respiratory: No respiratory distress. Equal air entry bilateral, no wheezing/rales/rhonchi Abdomen: Soft mild tenderness L upper quadrant Bowel sounds are present, no mass palpable, no CVA tenderness Skin: Skin warm and dry. Normal skin color. Normal skin turgor. Extremities: No lower extremity edema. No calf tenderness Neuro: Oriented X 3. No motor deficit. Medical Decision Making Medical Decision Making [facility] Narrative: Patient with alcoholic gastritis and cirrhosis with stable labs slightly elevated lipase but patient does not have any significant mid abdominal tenderness no vomiting patient advised to stop drinking and follow with environmental health physician Lab Data [facility] Lab Attestation statement: I reviewed the patient's lab results. 07/30/22 19:40 07/30/22 19:40 Labs: Lab Results 07/30/22 07/30/22 07/30/22 Range/Units 19:40 19:40 19:40 WBC 4.0 L (4.8-10.8) X10*3/uL RBC 3.91 L (4.60-5.80) X10*6/uL Hgb 10.2 L (14.0-18.0) g/dl Hct 29.7 L (42.0-52.0) % MCV 76.0 L (80.0-98.0) fL MCH 26.1 L (27.0-33.0) pg MCHC 34.3 (31.0-36.0) g/dl RDW 18.8 H (11.0-16.0) % Plt Count 71 L D (160-400) X10*3/uL MPV 9.6 (9.4-12.4) fL Immature Gran % (Auto) 0.3 (0.0-0.4) % Neut % (Auto) 53.7 (45-73) % Lymph % (Auto) 36.9 (20-40) % [place] % (Auto) 8.0 (2-11) % Eos % (Auto) 0.8 (0-4) % Baso % (Auto) 0.3 (0-2) % Lymph # (Auto) 1.5 (1.2-4.9) X10*3/uL [place] # (Auto) 0.3 (0.1-1.2) X10*3/uL Eos # (Auto) 0.0 (0.0-0.4) X10*3/uL Baso # (Auto) 0.0 (0.0-0.2) X10*3/uL Abs Immat Gran (auto) 0.01 (0.00-0.03) X10*3/uL Absolute Neuts (auto) 2.1 (2.0-8.3) x10*3/uL Absolute Nucleated RBC 0.000 (0.0-0.012) X10*3/uL Nucleated RBC % (auto) 0.0 (0.0-0.2) /100WBC Sodium 141 (135-145) mmol/L Potassium 4.2 (3.3-5.1) mmol/L Chloride 108 (96-108) mmol/L Carbon Dioxide 23 (22-29) mmol/L Anion Gap 14 (12-20) BUN 5 L (9-16) mg/dL Creatinine 0.80 (0.5-1.4) mg/dL Estim Creat Clear Calc 113.3 Estimated GFR > 60 Random Glucose 101 (60-115) mg/dL Calcium 8.1 L (8.4-10.2) mg/dL Magnesium 1.8 (1.6-2.6) mg/dL Total Bilirubin 2.2 H (0.0-1.0) mg/dL AST 124 H (5-37) U/L ALT 31 (0-40) U/L Alkaline Phosphatase 162 H (39-117) U/L Troponin I High Sens 23.6 (<3.5-35.0) ng/L Total Protein 7.2 (6.5-8.0) g/dL Albumin 3.5 (3.5-5.0) g/dL Lipase 87 H (8-78) U/L Ethyl Alcohol 452 H* mg/dL Discharge Plan Discharge Clinical Impression: Alcohol intoxication Patient Disposition: Home, Self-Care Instructions: Abuse of Alcohol (DC) Additional Instructions: Stop drinking alcohol Follow-up with environmental health physician Take Protonix 40 mg daily Prescriptions: New pantoprazole [Protonix] 40 mg tablet,delayed release (DR/EC) 40 mg PO DAILY Qty: 30 0RF No Action omeprazole 40 mg capsule,delayed release(DR/EC) 40 mg PO DAILY 30 Days Qty: 30 6RF senna 8.6 mg capsule 17.2 mg PO BID 30 Days Qty: 120 3RF peg 3350-electrolytes [Golytely] 236-22.74-6.74 -5.86 gram recon soln 240 ml PO Q10M 1 Days Qty: 4000 0RF Rx Instructions: until fecal effluent is clear; do not exceed a total volume of 2,000 mL Interventions: ED Discharge Assessment Last Done: 07/30/22 22:18
[2022-07-30 19:27] VITALS: BP 91/60; PULSE 89; RESP 16; TEMP 36.6; O2SAT 94; BMI 30.5
[2022-07-30 19:46] LABS: MANUAL DIFF FLAG NO
[2022-07-30 19:48] LABS: Basophils Percent Auto 0.3 % (0-2); Eosinophils Percent Auto 0.8 % (0-4); Hematocrit 29.7 % (42.0-52.0); Hemoglobin 10.2 g/dl (14.0-18.0); Imm Gran Abs Auto 0.01 X10*3/uL (0.00-0.03); Imm Gran Pct Auto 0.3 % (0.0-0.4); Lymphocytes Absolute Auto 1.5 X10*3/uL (1.2-4.9); Lymphocytes Percent Auto 36.9 % (20-40); Mean Corpuscular HGB Conc 34.3 g/dl (31.0-36.0); Mean Corpuscular Hemoglobin 26.1 pg (27.0-33.0); Mean Platelet Volume 9.6 fL (9.4-12.4); Monocytes Absolute Auto 0.3 X10*3/uL (0.1-1.2); Neutrophils Absolute Auto 2.1 x10*3/uL (2.0-8.3); Neutrophils Percent Auto 53.7 % (45-73); Red Blood Count 3.91 X10*6/uL (4.60-5.80); Red Cell Distribution Width 18.8 % (11.0-16.0)
[2022-07-30 19:56] LABS: Platelet Count 71 X10*3/uL (160-400)
[2022-07-30 20:10] LABS: Alanine Aminotransferase 31 U/L (0-40); Albumin Level 3.5 g/dL (3.5-5.0); Alkaline Phosphatase 162 U/L (39-117); Anion Gap 14 (12-20); Aspartate Amino Transferase 124 U/L (5-37); Bilirubin Total 2.2 mg/dL (0.0-1.0); Blood Urea Nitrogen 5 mg/dL (9-16); Calcium 8.1 mg/dL (8.4-10.2); Carbon Dioxide 23 mmol/L (22-29); Chloride 108 mmol/L (96-108); Creatinine Clr Calc Pharmacy 113.3; Estimated Glomerular Filt Rate > 60; Ethanol 452 mg/dL; Glucose Random 101 mg/dL (60-115); Lipase 87 U/L (8-78); Magnesium 1.8 mg/dL (1.6-2.6); Potassium 4.2 mmol/L (3.3-5.1); Sodium 141 mmol/L (135-145); Total Protein 7.2 g/dL (6.5-8.0)
[2022-07-30 20:18] LABS: Troponin-I High Sensitivity 23.6 ng/L (<3.5-35.0)
== END 2022-07-30 22:19 | disposition home or self-care (01) ==
PROVIDERS: Emergency Provider Internal Medicine; PCP Internal Medicine
DX: F10.129 Alcohol abuse with intoxication, unspecified (principal); Y90.8 Blood alcohol level of 240 mg/100 ml or more; R07.89 Other chest pain; F17.200 Nicotine dependence, unspecified, uncomplicated; Z71.6 Tobacco abuse counseling; Z79.899 Other long term (current) drug therapy
CPT/HCPCS: 36415; 71045; 80053; 82077; 83690; 83735; 84484; 85025; 93005; 99283

== ENCOUNTER 2022-10-31 14:28 | Emergency (ER) | payer MEDICAID, SELFPAY ==
--- NOTE | ~2022-10-31 | US_ITS ---
EXAMINATION: US VENOUS ULTRASOUND WITH DOPPLER LOWER EXTREMITY, LEFT CLINICAL INFORMATION: Left lower extremity pain. COMPARISON: None available. TECHNIQUE: Ultrasound of the deep veins is performed from the hip to the calf with compression sonography and color and pulse Doppler assessment. Spectral analysis with color-flow imaging is performed. FINDINGS: There is normal venous compression and respiratory variation and augmented flow. The visualized common femoral vein, superficial femoral vein, profunda femoral vein, popliteal vein, and the trifurcation region shows no evidence of deep venous thrombosis. No left popliteal cyst. Incompletely compressed superficial varices are seen measuring up to 0.6 cm in the proximal left calf. No significant edema. If the patient's symptoms persist, followup ultrasound in 5 days 7 days might be of value to exclude proximal propagation from a non-visualized calf vein. US/US venous duplex LE IMPRESSION: 1. No evidence for deep venous thrombosis in the visualized veins of the left lower extremity. 2. Superficial varices in the proximal left calf.
[2022-10-31 14:36] VITALS: BP 118/58; PULSE 102; O2SAT 98
--- NOTE | 2022-10-31 14:36 | ED_ITS ---
HPI - General Adult General Chief complaint: Extremity Injury, Lower Stated complaint: BLE PAIN Time Seen by Provider: 10/31/22 16:35 Source: patient, EMS, old records reviewed and undercollar baster Mode of arrival: EMS Limitations: no limitations History of Present Illness HPI narrative: 51 y/o Citizen Of [place] speaking male with history of ETOH abuse, alcoholic cirrhosis, he lower extremity varicose veins presents to the ER for evaluation of acute on chronic bilateral lower leg pain. He states he has had the pain for years but it is worse today. Pain 10/10. No significant trauma but he scratched his left lower leg last week and now it is all bruised around the scratches. It is worse with ambulation. Pain extends to the left calf posteriorly. No leg swelling. No change in the appearance of his chronic varicose veins. He has been seen for them before and was waiting for a letter to see a vein specialist but never got one. No chest pain or SOB. Pain in the RLE is chronic and unchanged. MD complaint: LLE pain, acute on chronic Onset (ago): year(s) Location: left, right and lower extremity Radiation: proximal Severity: severe Severity scale (1-10): 10 Quality: aching Pain Consistency: constant Relieving factors: rest Exacerbating factors: movement and other (ambulation) Associated symptoms: denies other symptoms Treatments prior to arrival: none Related Data Previous Rx's Medication Instructions Recorded omeprazole 40 mg capsule,delayed 40 mg PO DAILY 30 days #30 caps 10/11/21 release peg 3350-electrolytes 236 240 ml PO Q10M 1 day #4,000 mL 11/22/21 gram-22.74 gram-6.74 gram-5.86 gram solution (Golytely) sennosides 8.6 mg capsule (senna) 17.2 mg PO BID constipation 30 11/22/21 days #120 caps pantoprazole 40 mg tablet,delayed 40 mg PO DAILY #30 tabs 07/30/22 release (Protonix) Allergies Allergy/AdvReac Type Severity Reaction Status Date / Time No Known Allergies Allergy Verified 10/31/22 15:03 Review of Systems Review of Systems: Yes all other systems are reviewed and are negative PMFSH Past Medical History Medical History Alcohol abuse Cirrhosis, alcoholic H/O myocardial infarction, greater than 8 weeks Pancytopenia Surgical History No history of previous surgery Family History Family History Father History of throat cancer Mother Hx of cancer of lung Stroke Maternal Grandmother Diabetes Social History Social History Household Members: Spouse and Children Alcohol intake: current Alcohol intake frequency: 3 or more drinks per day Alcohol type: beer Patient Tobacco Use Status: Current someday Tobacco user Advance Directives: No Advance Directives Information Provided: No Current occupational status: unemployed Physical Exam ED Vital Signs: Vital Signs - 24 hr 10/31/22 15:03 Temperature 98 F Pulse Rate 81 Respiratory Rate 19 Blood Pressure 117/67 Pulse Oximetry 98 Oxygen Delivery Method Room Air BMI result Body Mass Index 27.1 Appearance: Alert. Oriented X3. No acute distress. HEENT: normal inspection CVS: Normal heart rate and rhythm. Pulses normal. Respiratory: No respiratory distress. Skin: Skin warm and dry. Normal skin color. Normal skin turgor. No rashes. Extremities: left lower extremity with large, superficial, dilated veins of the lower leg. +calf tenderness without erythema or skin changes. superficial abrasions on the pretibial area with surrounding ecchymosis and tenderness. normal inspection and palpation of RLE Neuro: Oriented X 3. grossly normal, nonfocal. steady gait Course Course Course Narrative: This is an RME: Additional HPI, ROS, PE not included below will be deferred to primary provider. Patient is a 51-year-old male with history of thrombocytopenia, pancytopenia, cirrhosis, alcohol abuse, varicose veins presenting to the emergency department with distended and painful varicose veins to bilateral lower legs, L>R, states pain is 10/10. Reports pain has been for 6 months. Admits to drinking two beers today. Plan: ultrasound Medical Decision Making Medical Decision Making [facility] Narrative: 51 yo male presenting with acute on chronic pain in the LLE with superficial ab rasions and associated ecchymosis. hx pancytopenia. stated pain was 10/10 with difficulty ambulating. he had some calf tenderness on exam so LE doppler was performed and was negative for DVT. no evidence of LE cellulitis. his varicose veins are large and tender. he has never seen vascular surgeon for treatment options. balance staff staker was used to discuss results of U/S as well as importance of outpatient follow up. he expressed understanding and is stable for d/c home. Differential Diagnosis Differential Diagnoses: The differential diagnosis associated with the presentation includes acute DVT, PVD, PAD, varicose veins, cellulitis, hematoma Independent Interpretation I performed an independent interpretation of an: Ultrasound Interpretation: no visible DVT, agree w/ radiolody read Radiology Impression Discussion of test interpretation with radiology: I have reviewed the radiologist's reading. Radiologist Impression: US/US venous duplex LE LT IMPRESSION: 1.? No evidence for deep venous thrombosis in the visualized veins of the left lower extremity. 2.? Superficial varices in the proximal left calf. Independent Historian Clinical information obtained from an independent historian. History obtained from or confirmed by: EMS External Record Review External record reviewed: Outpatient record, Prior outpatient labs and Prior outpatient radiology Tests considered The following testing was considered but not selected: considered basic lab workup but low clinical suspicion for acute infection Prescription Management I considered prescription management with: Pain Medication Chronic Conditions Patient?s care impacted by: Other (alcoholic cirrhosis) Social Determinants Patient?s care significantly limited by Social Determinants of Health including: Alcoholism and drug addiction in family and Other Social Determinant of Health Critical Care Time Critical Care Time Critical Care Time: No Discharge Plan Discharge Clinical Impression: Varicose veins of left lower extremity Patient Disposition: Home, Self-Care Instructions: Venous Insufficiency (DC) Additional Instructions: Your ultrasound showed varicose veins, no blood clots Recommend wearing compression stockings to help with the pain It is important for you to follow up with the Vascular doctor - name and number below - call to make an appointment Elevate you legs whenever possible If you develop new or worsening symptoms call 911 or come back to the ER for further evaluation. Ramiers ultrasonido mostr? venas varicosas, sin co?gulos de jose. Recomiende usar medias de compresi?n para ayudar con el dolor. Es importante que farhat un seguimiento con el m?dico vascular - nombre y n?bisi a continuaci?n - llame para hacer amira mariah [place] tus piernas siempre que puedas Si desarrolla s?ntomas nuevos o que empeoran, llame al 911 o regrese a la lalo de emergencias para amira evaluaci?n adicional. Prescriptions: No Action pantoprazole [Protonix] 40 mg tablet,delayed release (DR/EC) 40 mg PO DAILY Qty: 30 0RF omeprazole 40 mg capsule,delayed release(DR/EC) 40 mg PO DAILY 30 Days Qty: 30 6RF senna 8.6 mg capsule 17.2 mg PO BID 30 Days Qty: 120 3RF peg 3350-electrolytes [Golytely] 236-22.74-6.74 -5.86 gram recon soln 240 ml PO Q10M 1 Days Qty: 4000 0RF Rx Instructions: until fecal effluent is clear; do not exceed a total volume of 2,000 mL Referrals: [facility] [place] (painful varicose veins of LLE) Interventions: ED Discharge Assessment Last Done: 10/31/22 16:57 Discharge Date/Time: 10/31/22 16:58 Print Language: Citizen Of [place]
[2022-10-31 15:03] VITALS: BP 117/67; PULSE 81; RESP 19; TEMP 36.6; O2SAT 98; BMI 27.1
== END 2022-10-31 16:58 | disposition home or self-care (01) ==
LOC: HO.ED 16:55
PROVIDERS: Emergency Provider Emergency Medicine
DX: I83.92 Asymptomatic varicose veins of left lower extremity (principal); R60.0 Localized edema
CPT/HCPCS: 93971; 99282; 99284

== ENCOUNTER 2023-02-16 13:59 | Inpatient (IN) | payer MEDICAID, SELFPAY ==
[2023-02-16] VITALS (7 sets, daily range): BP systolic 122–160; BP diastolic 65–88; PULSE 73–120; RESP 16–20; TEMP 37.2–38.8; O2SAT 94–100; BMI 27.1
--- NOTE | ~2023-02-16 | US_ITS ---
EXAMINATION: US ABDOMEN LIMITED CLINICAL INFORMATION: Right upper quadrant pain. COMPARISON: CT abdomen/pelvis 08/21/2021. TECHNIQUE: Real-time imaging of the right upper quadrant abdominal viscera. FINDINGS: PANCREAS: Not well visualized due to shadowing from overlying bowel gas. LIVER: Cirrhotic liver with findings consistent with portal hypertension including recanalized umbilical vein as well as enlarged main portal vein with hepatofugal flow. No discrete focal liver lesion. No significant intrahepatic biliary ductal dilatation. GALLBLADDER: Mobile stones. Nonmobile 0.4 cm polyp versus adherent stone. No significant gallbladder wall thickening nor pericholecystic fluid. Negative Anderson's sign. COMMON BILE DUCT: Limited evaluation due to shadowing from overlying bowel gas. RIGHT KIDNEY: No hydronephrosis. No renal calculi or focal parenchymal lesions. The kidney measures 12 cm in maximum dimension. FREE FLUID: None. US/US abdomen limited IMPRESSION: Limited evaluation secondary to patient body habitus and shadowing from overlying bowel gas. 1. Cirrhotic liver with evidence of portal hypertension including recanalized umbilical vein and enlarged main portal vein. 2. Cholelithiasis without sonographic evidence of acute cholecystitis. 3. A 0.4 cm gallbladder polyp versus adherent stone. If the patient has risk factors for gallbladder malignancy, a follow-up ultrasound in 6-12 months is recommended.
--- NOTE | ~2023-02-16 | CT_ITS ---
EXAMINATION: CT ABDOMEN AND PELVIS WITHOUT CONTRAST CLINICAL INFORMATION: Abdominal pain COMPARISON: Previous abdominal ultrasound 02/16/[address] August 2021 report only. Images not available for comparison at this time. TECHNIQUE: Multidetector volumetric imaging was performed from the superior aspect of the liver through the pubic symphysis. Sagittal and coronal reformatted images were obtained on the technologist's workstation. This CT examination was performed using dose optimization techniques as appropriate, variously including the following: *Automated exposure control *Adjustment of mA and/or kV according to patient size (this includes techniques or standardized protocols for targeted exams where dose is matched to indication/reason for exam; i.e. extremities or head) *Use of iterative reconstruction technique DLP: 759 mGy-cm FINDINGS: Exam is limited due to motion. LUNG BASES: 1 cm peripheral or subpleural density at the right lung base/posterior costophrenic angle. Evaluation is limited due to motion. It is uncertain whether this represents atelectasis or nodule. Review of sagittal and coronal reconstructions favors atelectasis. LIVER, GALLBLADDER, AND BILIARY TREE: There is a nodular contour of the liver suggestive of mild cirrhosis. The gallbladder is contracted. Question tiny gallstone. No focal liver lesion or biliary duct dilatation. No ascites. PANCREAS: Unremarkable. SPLEEN: Upper normal-size spleen. ADRENAL GLANDS: Unremarkable. KIDNEYS AND URETERS: High attenuation in the kidneys questionable for medullary nephrocalcinosis. Question tiny discrete 1 mm stone in the upper pole of the right kidney. No hydronephrosis, ureteral dilatation or ureteral stone. There is bilateral perinephric fat stranding. BLADDER: Unremarkable. GASTROINTESTINAL TRACT: The small and large bowel are unremarkable. The appendix is unremarkable. ABDOMINAL WALL: No significant hernia is appreciated. LYMPH NODES: Normal. VASCULAR: Unremarkable. There is ascites and collateral vessels including right anterior lateral abdominal wall varices, prominent right gonadal vein and right renal vein. PELVIC VISCERA: Unremarkable. OSSEOUS STRUCTURES: Degenerative changes of the spine. Mild left femoral head AVN. CT/CT abdomen pelvis wo IV con IMPRESSION: Cirrhotic-appearing liver and varices. High attenuation centrally in both kidneys questionable for medullary nephrocalcinosis. Question tiny 1 mm nonobstructing right upper pole renal stone. Contracted gallbladder and gallstone. Fleischner guidelines were followed.
--- NOTE | ~2023-02-16 | XR_ITS ---
EXAMINATION: XR CHEST CLINICAL INFORMATION: Concern for sepsis COMPARISON: 07/30/2022 TECHNIQUE: 2 views of the chest were obtained. FINDINGS: Heart, mediastinum and vascularity within normal limits. Focal opacity identified right midlung, possibly representing a confluence of structures. No consolidation/air bronchograms or effusions. Bony structures are intact. XR/XR chest 2V IMPRESSION: Small right midlung opacity, small focus of pneumonia not excluded. Consider short-term radiographic follow-up.
--- NOTE | 2023-02-16 14:18 | ED_ITS ---
HPI - General Adult General Chief complaint: Nausea/Vomiting/Diarrhea Stated complaint: WEAKNESS FEVER HX ALCOHOLISM Time Seen by Provider: 02/16/23 14:18 Source: patient, family, EMS, RN notes reviewed and systems program manager Mode of arrival: EMS Limitations: language barrier History of Present Illness HPI narrative: Patient is a 52-year-old Estonian-speaking male with history of ID, alcohol abuse, pancytopenia, and alcoholic cirrhosis presenting to the emergency department with complaint of RUQ abdominal pain, nausea, vomiting, and fever since yesterday. Patient admits to daily alcohol use stating that he typically drinks 6 of tall boys as well as shots of fireball daily. Reports last intake of alcohol was yesterday afternoon. He denies diarrhea or constipation. Denies chest pain or shortness of breath. He does endorse some dysuria and urinary frequency, denies hematuria. Denies back or flank pain. Describes emesis as saliva, and denies bloody or bilious emesis. MD complaint: Abdominal pain, fever, nausea, vomiting Onset (ago): hour(s) Location: abdomen Radiation: non-radiation Severity: moderate Quality: aching Pain Consistency: constant Relieving factors: none Exacerbating factors: none Associated symptoms: fever/chills and nausea/vomiting Treatments prior to arrival: none Related Data Home Medications Medication Instructions Recorded Confirmed No Known Home Meds 02/16/23 02/16/23 Allergies Allergy/AdvReac Type Severity Reaction Status Date / Time No Known Allergies Allergy Verified 10/31/22 15:03 Review of Systems 2 Review of Systems: as per HPI. Yes all other systems are reviewed and are negative Constitutional: Constitutional: Reports as per HPI [facility] Past Medical History Medical History H/O myocardial infarction, greater than 8 weeks Pancytopenia Cirrhosis, alcoholic Alcohol abuse Surgical History No history of previous surgery Family History Family History Father History of throat cancer Mother Hx of cancer of lung Stroke Maternal Grandmother Diabetes Social History Social History Household Members: Spouse Housing: House Do you presently have visiting nurse or other home services: No Alcohol intake: current Alcohol intake frequency: 3 or more drinks per day Alcohol type: beer and wine Patient Tobacco Use Status: Never used Tobacco Smoked in Last 30 Days: No Use of substances other than those prescribed or required for medical reasons: No Currently Displaying Signs/Symptoms of Drug Intoxication Withdrawal: No Have you been hit, kicked, punched, or otherwise hurt by someone within the past year? If so, by whom?: No Do you feel safe in your current relationship?: Yes Is there a partner from a previous relationship who is making you feel unsafe now?: No Are you made to feel afraid or neglected: No [employer] Healthcare Practices: methodist Advance Directives: No Advance Directives Information Provided: Yes Do you have thoughts of harming others: None Do you have a plan to hurt others: No Plan Recently lost weight without trying: No Nutrition Risks: No Nutritional Risk Current occupational status: unemployed Physical Exam ED Vital Signs: Vital Signs - 24 hr 02/16/23 14:21 02/16/23 14:44 02/16/23 15:36 Temperature 99.9 F 101.9 F H Pulse Rate 112 H 98 Respiratory Rate 16 16 Blood Pressure 147/74 H 125/65 Pulse Oximetry 97 100 Oxygen Delivery Method Room Air Room Air 02/16/23 19:13 Temperature Pulse Rate 84 Respiratory Rate Blood Pressure 122/77 Pulse Oximetry 99 Oxygen Delivery Method Room Air BMI result Body Mass Index 27.1 Vital signs have been reviewed and appear to be correct. Blood pressure elevated. Heart rate tachycardic. Respiratory rate normal. Temperature normal. Oxygen saturation normal. Const General: cooperative, healthy appearing and no acute distress Orientation/consciousness: oriented to person, oriented to place, oriented to time and patient oriented x3 Limitations: no limitations [facility] Head: Yes normocephalic and Yes atraumatic Ears: external ears normal General nose exam: Normal external nose present Face and sinus: Yes face symmetric Mouth: oropharynx normal and moist mucous membranes Throat: Yes uvula midline Eyes Pupils: Equal, round and reactive pupils present Neck Neck: Yes normal visual inspection and Yes supple Resp Effort & Inspection: normal respiratory effort and able to speak in complete sentences Auscultation: clear to auscultation bilaterally Cardio Rate: regular rate Rhythm: regular rhythm Heart sounds: S1 normal heart sound present and S2 normal heart sound present GI Inspection: Yes distended Palpation (GI): Soft to palpation, Tenderness to palpation present (GI) in the RUQ, no guarding and No Rebound tenderness present Auscultation: normoactive bowel sounds General: Yes no CVA tenderness Back/Spine/Pelvis Back: no CVA tenderness Skin General skin exam: elasticity normal, turgor normal and jaundice Neuro General: oriented to person, oriented to place, oriented to time, patient oriented x3, moves all extremities, no focal motor deficits and CN's II-XI intact bilaterally Cranial nerves: Yes Equal, round and reactive pupils present Cognition (Neuro): normal cognition Extrem General: Yes full ROM, Yes no pedal edema and Yes no calf tenderness Psych Mental Status: mental status grossly normal Affect: normal affect Thought process: Normal thought process present Course Course Course Narrative: -1723--US abdomen limited IMPRESSION: Limited evaluation secondary to patient body habitus and shadowing from overlying bowel gas. 1. Cirrhotic liver with evidence of portal hypertension including recanalized umbilical vein and enlarged main portal vein. 2. Cholelithiasis without sonographic evidence of acute cholecystitis. 3. A 0.4 cm gallbladder polyp versus adherent stone. If the patient has risk factors for gallbladder malignancy, a follow-up ultrasound in 6-12 months is recommended. > on my evaluation abdomen is nondistended, soft, nontender. Remains tachycardic to 95. Plan to admit for further management. Will p.o. trial and initiate phenobarb protocol Medications Administered Generic Name Dose Route Start Last Admin Trade Name Freq PRN Reason Stop Dose Admin Famotidine 20 mg 02/16/23 22:45 02/16/23 22:58 Famotidine 20 Mg Tablet PO 20 mg BID YURIY Administration Thiamine HCl 100 mg/ Sodium 101 mls @ 202 mls/hr 02/16/23 19:15 02/16/23 22:07 Chloride IV Infused DAILY YURIY Infusion Piperacillin Sod/Tazobactam 50 mls @ 100 mls/hr 02/16/23 22:45 02/16/23 23:43 Sod 3.375 gm/ Sodium Chloride IV Infused Q6H YURIY Infusion Sodium Chloride 3 ml 02/17/23 00:00 02/16/23 23:23 0.9 % Sodium Chloride Flush 3 Ml Syringe IVFLUSH 3 ml QSHIFT YURIY Administration Discontinued Medications Generic Name Dose Route Start Last Admin Trade Name Freq PRN Reason Stop Dose Admin Sodium Chloride 1,000 mls @ 999 mls/hr 02/16/23 15:45 02/16/23 17:54 Ns IV 02/16/23 16:45 Infused .Q1H1M YURIY Infusion Piperacillin Sod/Tazobactam 50 mls @ 100 mls/hr 02/16/23 15:42 02/16/23 16:57 Sod 3.375 gm/ Sodium Chloride IV 02/16/23 16:11 Infused ONCE ONE Infusion Sodium Chloride 1,000 mls @ 999 mls/hr 02/16/23 16:30 02/16/23 19:10 Ns IV 02/16/23 17:30 Infused .Q1H1M YURIY Infusion Magnesium Sulfate 2 gm in 50 mls @ 25 mls/hr 02/16/23 16:30 02/16/23 19:10 Magnesium Sulfate/H2o IV 02/16/23 18:29 Infused ONCE ONE Infusion Ibuprofen 600 mg 02/16/23 15:38 02/16/23 16:27 Ibuprofen 600 Mg Tablet PO 02/16/23 15:39 600 mg ONCE ONE Administration Phenobarbital Sodium 273 mg 02/16/23 18:00 02/16/23 18:12 Phenobarbital Sodium 130 Mg/Ml Im Once IM 02/16/23 18:01 273 mg ONCE ONE Administration Protocol Phenobarbital Sodium 205.4 mg 02/16/23 21:00 02/17/23 00:24 Phenobarbital Sodium 130 Mg/Ml Vial Im Q3hx2 IM 02/17/23 00:01 205.4 mg Q3H YURIY Administration Protocol Medical Decision Making Medical Decision Making MDM Narrative: 15:00 Patient is a 52-year-old Estonian-speaking male with history of ID, alcohol abuse, pancytopenia, and alcoholic cirrhosis presenting to the emergency department with complaint of RUQ abdominal pain, nausea, vomiting, and fever since yesterday. On exam patient is awake, A+Ox3, tachycardic, BP slightly elevated, VS otherwise WNL, afebrile, normal neurological exam without focal deficits, Physical exam findings as above. Given reported symptoms and physical exam findings, initial differential includes cholecystitis, cholangitis, pancreatitis, GERD, PUD. Feel ACS less likely but given history will obtain EKG and troponin. Do not suspect pneumonia. Do not suspect sepsis at this time. 15:40 RN now reporting temp of 101.9, lactic 2.2. IV fluids, ibuprofen, zosyn ordered. Labs notable for pancytopenia consistent with baseline, AST, alk phos elevated but consistent with prior results. X-ray chest notable for small right midlung opacity, pneumonia not excluded. My interpretation is in agreement with the radiologist's interpretation. Patient signed out to OBIE Lee pending remaining lab results and ultrasound. Differential Diagnosis Differential Diagnoses: The differential diagnosis associated with the presentation includes As per [facility] Admission/Observation Consideration of admission/observation: Escalation of care including admission/observation considered Lab Data [facility] Lab Attestation statement: I reviewed the patient's lab results. As per [facility] 02/16/23 14:38 02/16/23 14:38 Labs: Lab Results 02/16/23 02/16/23 02/16/23 Range/Units 14:38 14:58 16:30 WBC 4.6 L (4.8-10.8) X10*3/uL RBC 3.68 L (4.60-5.80) X10*6/uL Hgb 10.1 L (14.0-18.0) g/dl Hct 29.5 L (42.0-52.0) % MCV 80.2 (80.0-98.0) fL MCH 27.4 (27.0-33.0) pg MCHC 34.2 (31.0-36.0) g/dl RDW 16.3 H (11.0-16.0) % Plt Count 42 L D (160-400) X10*3/uL MPV 11.6 (9.4-12.4) fL Immature Gran % (Auto) 0.4 (0.0-0.4) % Neut % (Auto) 86.6 H (45-73) % Lymph % (Auto) 6.2 L (20-40) % [place] % (Auto) 6.6 (2-11) % Eos % (Auto) 0.0 (0-4) % Baso % (Auto) 0.2 (0-2) % Lymph # (Auto) 0.3 L (1.2-4.9) X10*3/uL [place] # (Auto) 0.3 (0.1-1.2) X10*3/uL Eos # (Auto) 0.0 (0.0-0.4) X10*3/uL Baso # (Auto) 0.0 (0.0-0.2) X10*3/uL Abs Immat Gran (auto) 0.02 (0.00-0.03) X10*3/uL Absolute Neuts (auto) 3.9 (2.0-8.3) x10*3/uL Absolute Nucleated RBC 0.000 (0.0-0.012) X10*3/uL Nucleated RBC % (auto) 0.0 (0.0-0.2) /100WBC PT 17.1 H (11.1-13.3) SEC INR 1.4 H (0.9-1.1) Sodium 137 (135-145) mmol/L Potassium 3.9 (3.3-5.1) mmol/L Chloride 106 (96-108) mmol/L Carbon Dioxide 21 L (22-29) mmol/L Anion Gap 14 (12-20) BUN 6 L (9-16) mg/dL Creatinine 0.82 (0.5-1.4) mg/dL Estim Creat Clear Calc 99.6 Estimated GFR > 60 Random Glucose 147 H (60-115) mg/dL Lactic Acid 2.2 H* (0.5-2.0) mmol/L Calcium 9.1 D (8.4-10.2) mg/dL Magnesium 1.5 L (1.6-2.6) mg/dL Total Bilirubin 3.1 H (0.0-1.0) mg/dL AST 89 H (5-37) U/L ALT 21 (0-40) U/L Alkaline Phosphatase 144 H (39-117) U/L Troponin I High Sens 19.1 (<3.5-35.0) ng/L Total Protein 7.9 (6.5-8.0) g/dL Albumin 3.4 L (3.5-5.0) g/dL Lipase 44 (8-78) U/L Ethyl Alcohol 50 mg/dL COVID-19 (ROSS) Negative (Negative) COVID-19 Clin Com See Note Influenza Type A (STEPHANIE) Negative (Negative) Influenza Type B (STEPHANIE) Negative (Negative) Influenza A & B Note See Note Independent Interpretation I performed an independent interpretation of an: EKG and Plain X-Ray Interpretation: small right midlung opacity, pneumonia not excluded EKG: normal sinus rhythm, rate 94 bpm normal MS and QT intervals Radiology Impression Discussion of test interpretation with radiology: I have reviewed the radiologist's reading. Radiologist Impression: XR/XR chest 2V IMPRESSION: Small right midlung opacity, small focus of pneumonia not excluded. Consider short-term radiographic follow-up. Independent Historian Clinical information obtained from an independent historian. History obtained from or confirmed by: Spouse External Record Review External record reviewed: Inpatient record, Office record and Outpatient record Prescription Management I considered prescription management with: Antibiotic Critical Care Time Critical Care Time Critical Care Time: Yes Total Critical Care Time: 45 Attestation: I have personally provided critical care time exclusive of time spent on separately billable procedures. Time includes review of lab data, radiology results, discussion with consultants, and monitoring for potential decompensation. Intervention performed as documented. Discharge Plan Discharge Clinical Impression: Abdominal pain, Pneumonia Patient Disposition: Admitted As Inpatient
[2023-02-16 14:43] LABS: MANUAL DIFF FLAG NO
[2023-02-16 14:50] LABS: Basophils Percent Auto 0.2 % (0-2); Hematocrit 29.5 % (42.0-52.0); Hemoglobin 10.1 g/dl (14.0-18.0); Imm Gran Abs Auto 0.02 X10*3/uL (0.00-0.03); Imm Gran Pct Auto 0.4 % (0.0-0.4); Lymphocytes Absolute Auto 0.3 X10*3/uL (1.2-4.9); Lymphocytes Percent Auto 6.2 % (20-40); Mean Corpuscular HGB Conc 34.2 g/dl (31.0-36.0); Mean Corpuscular Hemoglobin 27.4 pg (27.0-33.0); Mean Corpuscular Volume 80.2 fL (80.0-98.0); Mean Platelet Volume 11.6 fL (9.4-12.4); Monocytes Absolute Auto 0.3 X10*3/uL (0.1-1.2); Monocytes Percent Auto 6.6 % (2-11); Neutrophils Absolute Auto 3.9 x10*3/uL (2.0-8.3); Neutrophils Percent Auto 86.6 % (45-73); Red Blood Count 3.68 X10*6/uL (4.60-5.80); Red Cell Distribution Width 16.3 % (11.0-16.0); White Blood Count 4.6 X10*3/uL (4.8-10.8)
[2023-02-16 14:53] LABS: Platelet Count 42 X10*3/uL (160-400)
[2023-02-16 14:56] LABS: Ethanol 50 mg/dL
[2023-02-16 14:58] LABS: INTERNATIONAL NORM RATIO 1.4 (0.9-1.1); Prothrombin Time 17.1 SEC (11.1-13.3)
[2023-02-16 15:00] LABS: Alanine Aminotransferase 21 U/L (0-40); Albumin Level 3.4 g/dL (3.5-5.0); Alkaline Phosphatase 144 U/L (39-117); Anion Gap 14 (12-20); Aspartate Amino Transferase 89 U/L (5-37); Bilirubin Total 3.1 mg/dL (0.0-1.0); Blood Urea Nitrogen 6 mg/dL (9-16); Calcium 9.1 mg/dL (8.4-10.2); Carbon Dioxide 21 mmol/L (22-29); Chloride 106 mmol/L (96-108); Creatinine Clr Calc Pharmacy 99.6; Estimated Glomerular Filt Rate > 60; Glucose Random 147 mg/dL (60-115); Magnesium 1.5 mg/dL (1.6-2.6); Potassium 3.9 mmol/L (3.3-5.1); Sodium 137 mmol/L (135-145); Total Protein 7.9 g/dL (6.5-8.0)
--- NOTE | 2023-02-16 15:04 | ECG_ITS ---
Test Reason : NAUSEA/VOMITING Blood Pressure : / mmHG Vent. Rate : 094 BPM Atrial Rate : 094 BPM P-R Int : 160 ms QRS Dur : 096 ms QT Int : 364 ms P-R-T Axes : 036 -12 047 degrees QTc Int : 455 ms Normal sinus rhythm Intra-ventricular conduction delay Borderline ECG When compared with ECG of 30-JUL-2022 19:59, No significant change was found Referred By: Yuridia Quintana Electronically Signed By:JOVON GONZALEZ MD
[2023-02-16 15:24] LABS: COVID-19 Test Negative (Negative); IDNOW Serial# 08D9AD1C; IDNOW Serial# BCCEAD1C; Influenza A Negative (Negative); Influenza B2 Negative (Negative)
[2023-02-16 15:25] LABS: Lactic Acid 2.2 mmol/L (0.5-2.0)
[2023-02-16] MEDS: Piperacillin Sodium/Tazobactam 3.375 GM in 0.9 % Sodium Chloride 50 ML IV ×2 (16:27→22:58)
[2023-02-16] MEDS: 0.9 % Sodium Chloride 1,000 ML 999 ML IV ×2 (16:27→17:54)
[2023-02-16] MEDS: Ibuprofen 600 MG TABLET PO (16:27)
[2023-02-16 16:42] LABS: Reflex Lactate? Lactic Acid Added
[2023-02-16 16:49] LABS: Lipase 44 U/L (8-78)
[2023-02-16 16:56] LABS: Troponin-I High Sensitivity 19.1 ng/L (<3.5-35.0)
[2023-02-16] MEDS: Magnesium Sulfate/H2O 2 GM/50 ML PIGGYBACK IV (17:09)
[2023-02-16] MEDS: PHENobarbitaL sodium 130 MG/ML IM ONCE 273 MG IM (18:12)
--- NOTE | 2023-02-16 18:49 | PHA.MEDREC ---
Pharmacy Consult ? Medication Reconciliation Pharmacy has completed the medication reconciliation. [employer] Specialist services used; patient reports no home medications
--- NOTE | 2023-02-16 20:05 | P.HPHOSP_ITS ---
History of Present Illness Date of Service: 02/16/23 Attending physician on admission: Calvin Card Chief Complaint: Abdominal pain Pt is a 52-year-old male with a PMH significant for?previous NE, alcohol use disorder, pancytopenia, and alcoholic cirrhosis currently not on any chronic home medications who presents to the ED for evaluation of abdominal pain and fever. Patient states abdominal pain has been ongoing intermittently for the past month. States it feels like someone is ?punching me in my ribs?. Pain is on both right and left side without radiation. Patient also has been experiencing intermittent nausea and vomiting, says he sometimes ?regurgitates? his food. Patient also states he has been experiencing nasal congestion for the past month with occasional cough productive of whitish sputum that he describes as ?drool?. Patient admits to heavy alcohol use, currently drinking 6 tall boys and 4-6 nips daily. Denies hx of alcohol withdrawal. Patient presents to the hospital today due to worsening abdominal pain and registering a fever this morning. In the ED patient with temperature up to 101.9, tachycardic up to 112, and slightly hypertensive up to 147/74, satting at 97% on RA. Labs were significant for stable pancytopenia of WBC 4.6, H&H 10.1/29.5, platelets 42, lactic acid 2.2, magnesium 1.5, bilirubin 3.1, AST 89, alk-phos 144, troponin detectable at 19.1. Ethyl alcohol 50. CXR showed small right mid lung opacity, small focus of pneumonia not excluded. Abdominal ultrasound showed cirrhotic liver with evidence of portal hypertension including recannulized umbilical vein and enlarged main portal vein, cholelithiasis without evidence of acute cholecystitis, 0.4 cm gallbladder polyp versus adherent stone; suggest follow-up ultrasound in 6-12 months if patient with risk factors for gallbladder malignancy. EKG demonstrated normal sinus rhythm without evidence of ST elevations or depressions. Pt was treated with an ibuprofen, IVF, hip taste so, Mag sulfate, is started on phenobarb protocol. Pt will be admitted to the hospital for treatment and further evaluation of sepsis likely secondary to abdominal infection. Review of Systems 2 Review of Systems: Abdominal pain Fever Nasal congestion Cough PMFSH Medical History H/O myocardial infarction, greater than 8 weeks Pancytopenia Cirrhosis, alcoholic Alcohol abuse Family History Father History of throat cancer Mother Hx of cancer of lung Stroke Maternal Grandmother Diabetes Surgical History No history of previous surgery Social History Household Members: Spouse and Children Alcohol intake: current Alcohol intake frequency: 3 or more drinks per day Alcohol type: beer and wine Patient Tobacco Use Status: Current someday Tobacco user Smoked in Last 30 Days: No Use of substances other than those prescribed or required for medical reasons: No Advance Directives: No Advance Directives Information Provided: Yes Current occupational status: unemployed Meds Allergies Allergy/AdvReac Type Severity Reaction Status Date / Time No Known Allergies Allergy Verified 10/31/22 15:03 Active Medications: Current Medications Acetaminophen (Acetaminophen 325 Mg Tablet) 650 mg PO Q6H PRN PRN Reason: Pain, Mild (Pain Scale 1-3) Acetaminophen (Acetaminophen Supp 650 Mg Supp.Rect) 650 mg CO Q6H PRN PRN Reason: Pain, Mild (Pain Scale 1-3) Thiamine HCl 100 mg/ Sodium (Chloride) 101 mls @ 202 mls/hr IV DAILY YURIY Melatonin (Melatonin 3 Mg Tablet) 6 mg PO BEDTIME PRN PRN Reason: Insomnia Ondansetron HCl (Ondansetron Hcl 4 Mg/2 Ml Vial) 4 mg IVPUSH Q8H PRN PRN Reason: Nausea and Vomiting Pharmacy Consult (Consult Rx Etoh Phenob Im/Po) 1 each MISCELLANE ONCE PRN; Protocol PRN Reason: Consult order Phenobarbital (Phenobarbital 15 Mg Tablet) 45 mg PO BID YURIY; Protocol Stop: 02/18/23 21:01 Phenobarbital (Phenobarbital 15 Mg Tablet) 15 mg PO BID YURIY; Protocol Stop: 02/20/23 21:01 Phenobarbital (Phenobarbital 15 Mg Tablet) 15 mg PO DAILY YURIY; Protocol Stop: 02/22/23 09:01 Phenobarbital Sodium (Phenobarbital Sodium 130 Mg/Ml Vial Im Q3hx2) 205.4 mg IM Q3H YURIY; Protocol Stop: 02/16/23 22:01 Sodium Chloride (0.9 % Sodium Chloride Flush 3 Ml Syringe) 3 ml IVFLUSH QSHIFT [facility] Home Medications Medication Instructions Recorded Confirmed Last Taken Type No Known Home Meds 02/16/23 02/16/23 Unknown History Physical Exam 2 Vital Signs and Narrative: Vital Signs: Last Vital Signs Temp 101.9 F H 02/16/23 15:36 Pulse 84 02/16/23 19:13 Resp 16 02/16/23 15:36 BP 122/77 02/16/23 19:13 Pulse Ox 99 02/16/23 19:13 O2 Del Method Room Air 02/16/23 19:13 BMI result Body Mass Index 27.1 Constitutional: Alert, in no acute distress. Mental Status: Oriented to person, place and time. Eyes: Pupils are equal, round, and reactive to light. Ear, Nose, and Throat: Oropharynx clear, mucous membranes moist. Ears and nose without deformities. Trachea midline. Respiratory: Clear to auscultation bilaterally. No wheezing, rales, or rhonchi. Cardiovascular: S1, S2 regular. No murmurs, rubs, or gallops. Gastrointestinal: Abdomen soft, mildly-distended, diffusely tender. Normal bowel sounds. Neurologic: Cranial nerves II-XII are grossly intact bilaterally. No focal neurological deficits. Moves all extremities spontaneously. No tremors noted. Skin: No rashes or lesions noted. Musculoskeletal: No cyanosis or clubbing. Extremities: No edema. Psychiatric: Normal mood and affect. Results Labs 02/16/23 14:38 02/16/23 14:38 Labs: Laboratory Results - last 24 hr 02/16/23 02/16/23 14:38 14:58 MCV 80.2 MCH 27.4 MCHC 34.2 RDW 16.3 H Plt Count 42 L D MPV 11.6 Immature Gran % (Auto) 0.4 Neut % (Auto) 86.6 H Lymph % (Auto) 6.2 L [place] % (Auto) 6.6 Eos % (Auto) 0.0 Baso % (Auto) 0.2 Lymph # (Auto) 0.3 L [place] # (Auto) 0.3 Eos # (Auto) 0.0 Baso # (Auto) 0.0 Abs Immat Gran (auto) 0.02 Absolute Neuts (auto) 3.9 Absolute Nucleated RBC 0.000 Nucleated RBC % (auto) 0.0 PT 17.1 H INR 1.4 H Anion Gap 14 Estim Creat Clear Calc 99.6 Estimated GFR > 60 Random Glucose 147 H Lactic Acid 2.2 H* Calcium 9.1 D Magnesium 1.5 L Total Bilirubin 3.1 H AST 89 H ALT 21 Alkaline Phosphatase 144 H Total Protein 7.9 Albumin 3.4 L Lipase 44 Ethyl Alcohol 50 COVID-19 (ROSS) Negative COVID-19 Clin Com See Note Influenza Type A (STEPHANIE) Negative Influenza Type B (STEPHANIE) Negative Influenza A & B Note See Note Imaging Radiologist's Impressions: Impressions Chest X-Ray 02/16/23 15:47 IMPRESSION: Small right midlung opacity, small focus of pneumonia not excluded. Consider short-term radiographic follow-up. Abdomen Ultrasound 02/16/23 16:42 IMPRESSION: Limited evaluation secondary to patient body habitus and shadowing from overlying bowel gas. 1. Cirrhotic liver with evidence of portal hypertension including recanalized umbilical vein and enlarged main portal vein. 2. Cholelithiasis without sonographic evidence of acute cholecystitis. 3. A 0.4 cm gallbladder polyp versus adherent stone. If the patient has risk factors for gallbladder malignancy, a follow-up ultrasound in 6-12 months is recommended. Assessment and Plan (1) Alcohol withdrawal: Status: Acute (2) Abdominal pain: Status: Acute Plan Pt is a 52-year-old male with a PMH significant for?previous NE, alcohol use disorder, pancytopenia, and alcoholic cirrhosis currently not on any chronic home medications who presents to the ED for evaluation of abdominal pain and fever. Pt will be admitted to the hospital for treatment and further evaluation of sepsis likely secondary to abdominal infection. Sepsis likely secondary to abdominal source Patient with intermittent, worsening diffuse abdominal pain x1 month, worse the past couple of days, fever starting this morning Pt with liver cirrhosis and portal hypertension: ?SBP Pt meets sepsis criteria: likely infection, fever, tachycardia, lactic acid Pt given IVF and broad-spectrum abx in ED Will cover with Zosyn, started 02/16/2023 Ultrasound of RUQ negative for acute findings Will get CT of abdomen and pelvis Question of pneumonia CXR with evidence of small right mid lung opacity that cannot exclude small focus of pneumonia However, patient experiencing symptoms more like URI than pneumonia Monitor respiratory status and consider short term radiographic f/u Acute alcohol withdrawal Patient drinks 6 tall boys? and 4-6 nips daily Continue Phenobarb protocol Daily multivitamin, folic acid 1mg, Thiamine 100 mg daily Famotidine Follow lytes, Mag, BMP CIWA scale Addiction medicine consult Pancytopenia Chronic, likely secondary to alcohol use disorder and alcoholic cirrhosis WBC 4.6, H&H 10.1/295, platelets 42, all seemingly stable and near baseline Patient denies any active bleeding at this time: No hematochezia, melena, hematemesis Follow CBC Abnormal ultrasound findings Ultrasound of abdomen found 0.4 cm gallbladder polyp versus adherent stone Should follow up outpatient in 6-12 months with repeat ultrasound to assess for possible gallbladder malignancy Full Code Attending:?Dr. Card DVT Prophylaxis: Pneumatic boots d/t thrombocytopenia Pt will require a hospitalization of at least two nights for treatment of?sepsis likely secondary to abdominal infection and acute alcohol withdrawal. Patient be treated with IV antibiotics, phenobarbital protocol, and require additional testing. Time Spent With Patient Time: Total time managing care of this patient today ____ minutes. Quality Stroke Does the patient have a stroke diagnosis?: No VTE Prior VTE?: No VTE Risk Level:: Medical - moderate - high VTE Device Contraindication: N/A - Device Ordered VTE Drug Contraindication: Treatment Not Indicated
[2023-02-16 20:23] LABS: Appearance Urine Turbid; Color Urine Yellow; Glucose Urine UA Negative (Negative); Leukocyte Esterase Urine Large (3+) (Negative); Nitrite Urine Positive (Negative); UMIC TRIGGER UACC YES; Urine Blood Trace (Negative); Urine Ketones Negative (Negative); Urine Protein Trace mg/dL (Neg-Trace)
[2023-02-16 20:32] LABS: ~Lactic Acid-LAB USE ONLY 1.5 mmol/L (0.5-2.0)
[2023-02-16 20:43] LABS: Troponin-I High Sensitivity 20.5 ng/L (<3.5-35.0)
[2023-02-16 20:54] LABS: Bacteria Urine 4+ (None Seen); UACC Culture Trigger YES; WBC Urine >50 /HPF (0-5)
[2023-02-16 21:14] LABS: Vitamin B12 911 pg/mL (200-900)
[2023-02-16 21:17] LABS: Folate 8.4 ng/mL (> or = 4.0)
[2023-02-16] MEDS: PHENobarbitaL sodium 130 MG/ML VIAL IM Q3Hx2 205.4 MG IM (21:26)
[2023-02-16] MEDS: Thiamine HCL 100 MG in 0.9 % Sodium Chloride 100 ML 202 MG IV (21:29)
--- NOTE | 2023-02-16 21:55 | PC.NURSE ---
report given to s3 RN; states will contact pharmacy to retime phenobarb as dose too soon in jul.
[2023-02-16] MEDS: Famotidine 20 MG TABLET PO (22:58)
[2023-02-16] MEDS: 0.9 % Sodium Chloride Flush 3 ML SYRINGE IVFLUSH (23:23)
[2023-02-17] MEDS: PHENobarbitaL sodium 130 MG/ML VIAL IM Q3Hx2 205.4 MG IM (00:24)
[2023-02-17] MEDS: Piperacillin Sodium/Tazobactam 3.375 GM in 0.9 % Sodium Chloride 50 ML IV ×4 (05:31→23:09)
[2023-02-17 07:26] LABS: MANUAL DIFF FLAG NO
[2023-02-17 07:30] LABS: Basophils Percent Auto 0.3 % (0-2); Eosinophils Percent Auto 0.6 % (0-4); Hematocrit 26.7 % (42.0-52.0); Hemoglobin 9.5 g/dl (14.0-18.0); Imm Gran Abs Auto 0.01 X10*3/uL (0.00-0.03); Imm Gran Pct Auto 0.3 % (0.0-0.4); Lymphocytes Absolute Auto 0.6 X10*3/uL (1.2-4.9); Lymphocytes Percent Auto 17.2 % (20-40); Mean Corpuscular HGB Conc 35.6 g/dl (31.0-36.0); Mean Corpuscular Hemoglobin 28.4 pg (27.0-33.0); Mean Corpuscular Volume 79.7 fL (80.0-98.0); Mean Platelet Volume 10.2 fL (9.4-12.4); Monocytes Absolute Auto 0.5 X10*3/uL (0.1-1.2); Monocytes Percent Auto 13.8 % (2-11); Neutrophils Absolute Auto 2.4 x10*3/uL (2.0-8.3); Neutrophils Percent Auto 67.8 % (45-73); Red Blood Count 3.35 X10*6/uL (4.60-5.80); Red Cell Distribution Width 16.3 % (11.0-16.0); White Blood Count 3.5 X10*3/uL (4.8-10.8)
[2023-02-17 07:32] LABS: Platelet Count 36 X10*3/uL (160-400)
[2023-02-17 07:37] VITALS: BP 131/67; PULSE 78; RESP 17; TEMP 37.3; O2SAT 98
[2023-02-17 07:48] LABS: Anion Gap 12 (12-20); Blood Urea Nitrogen 7 mg/dL (9-16); Calcium 8.2 mg/dL (8.4-10.2); Carbon Dioxide 19 mmol/L (22-29); Chloride 110 mmol/L (96-108); Creatinine Clr Calc Pharmacy 113.4; Estimated Glomerular Filt Rate > 60; Glucose Random 100 mg/dL (60-115); Potassium 3.5 mmol/L (3.3-5.1); Sodium 137 mmol/L (135-145)
[2023-02-17] MEDS: Folic Acid 1 MG TABLET PO (08:22)
[2023-02-17] MEDS: PHENobarbitaL 15 MG TABLET 45 MG PO ×2 (08:23→20:40)
[2023-02-17] MEDS: 0.9 % Sodium Chloride Flush 3 ML SYRINGE IVFLUSH ×3 (08:23→21:05)
[2023-02-17] MEDS: Famotidine 20 MG TABLET PO ×2 (08:23→20:40)
[2023-02-17] MEDS: Multivitamin TABLET 1 TAB PO (08:23)
[2023-02-17] MEDS: Thiamine HCL 100 MG in 0.9 % Sodium Chloride 100 ML 202 MG IV (08:29)
--- NOTE | 2023-02-17 11:40 | HO.PM.IMPN ---
Subjective Subjective Date of Service: 02/17/23 Interval History: shaky, abd pain improved Physical Exam Vital Signs: Vital Signs: Last Vital Signs Temp 99.2 F 02/17/23 07:37 Pulse 78 02/17/23 07:37 Resp 17 02/17/23 07:37 BP 131/67 02/17/23 07:37 Pulse Ox 98 02/17/23 07:37 O2 Del Method Room Air 02/17/23 07:37 BMI result Body Mass Index 27.1 tremorulous, abd soft, non tender, alert oriented times 3, no acute distress Objective Data Active Medications Acetaminophen (Acetaminophen 325 Mg Tablet) 650 mg PO Q6H PRN PRN Reason: Pain, Mild (Pain Scale 1-3) Acetaminophen (Acetaminophen Supp 650 Mg Supp.Rect) 650 mg MN Q6H PRN PRN Reason: Pain, Mild (Pain Scale 1-3) Famotidine (Famotidine 20 Mg Tablet) 20 mg PO BID [facility] Last Admin: 02/17/23 08:23 Dose: 20 mg Documented By: HEATH Folic Acid (Folic Acid 1 Mg Tablet) 1 mg PO DAILY [facility] Stop: 02/20/23 08:59 Last Admin: 02/17/23 08:22 Dose: 1 mg Documented By: HEATH Thiamine HCl 100 mg/ Sodium (Chloride) 101 mls @ 202 mls/hr IV DAILY [facility] Last Infusion: 02/17/23 09:04 Dose: Infused Documented By: HEATH Piperacillin Sod/Tazobactam (Sod 3.375 gm/ Sodium Chloride) 50 mls @ 100 mls/hr IV Q6H [facility] Last Infusion: 02/17/23 11:14 Dose: Infused Documented By: HEATH Melatonin (Melatonin 3 Mg Tablet) 6 mg PO BEDTIME PRN PRN Reason: Insomnia Multivitamins/Vitamin C (Multivitamin Tablet) 1 tab PO DAILY [facility] Stop: 02/20/23 08:59 Last Admin: 02/17/23 08:23 Dose: 1 tab Documented By: HEATH Ondansetron HCl (Ondansetron Hcl 4 Mg/2 Ml Vial) 4 mg IVPUSH Q8H PRN PRN Reason: Nausea and Vomiting Pharmacy Consult (Consult Rx Etoh Phenob Im/Po) 1 each MISCELLANE ONCE PRN; Protocol PRN Reason: Consult order Phenobarbital (Phenobarbital 15 Mg Tablet) 45 mg PO BID [facility]; Protocol Stop: 02/18/23 21:01 Last Admin: 02/17/23 08:23 Dose: 45 mg Documented By: HEATH Phenobarbital (Phenobarbital 15 Mg Tablet) 15 mg PO BID [facility]; Protocol Stop: 02/20/23 21:01 Phenobarbital (Phenobarbital 15 Mg Tablet) 15 mg PO DAILY [facility]; Protocol Stop: 02/22/23 09:01 Sodium Chloride (0.9 % Sodium Chloride Flush 3 Ml Syringe) 3 ml IVFLUSH QSHIFT [facility] Last Admin: 02/17/23 08:23 Dose: 3 ml Documented By: HEATH Labs 02/17/23 07:22 02/17/23 07:22 Labs: Laboratory Results - last 24 hr 02/16/23 02/16/23 02/16/23 14:38 14:58 20:16 MCV 80.2 MCH 27.4 MCHC 34.2 RDW 16.3 H Plt Count 42 L D MPV 11.6 Immature Gran % (Auto) 0.4 Neut % (Auto) 86.6 H Lymph % (Auto) 6.2 L [place] % (Auto) 6.6 Eos % (Auto) 0.0 Baso % (Auto) 0.2 Lymph # (Auto) 0.3 L [place] # (Auto) 0.3 Eos # (Auto) 0.0 Baso # (Auto) 0.0 Abs Immat Gran (auto) 0.02 Absolute Neuts (auto) 3.9 Absolute Nucleated RBC 0.000 Nucleated RBC % (auto) 0.0 PT 17.1 H INR 1.4 H Anion Gap 14 Estim Creat Clear Calc 99.6 Estimated GFR > 60 Random Glucose 147 H Lactic Acid 2.2 H* Lactic Acid F/U @ 2Hr 1.5 Calcium 9.1 D Magnesium 1.5 L Total Bilirubin 3.1 H AST 89 H ALT 21 Alkaline Phosphatase 144 H Total Protein 7.9 Albumin 3.4 L Lipase 44 Vitamin B12 911 H Folate 8.4 Urine Color Yellow Urine Appearance Turbid Urine pH 8.0 Ur Specific [place] 1.010 Urine Protein Trace Urine Glucose (UA) Negative Urine Ketones Negative Urine Blood Trace H Urine Nitrite Positive H Ur Leukocyte Esterase Large (3+) H Urine RBC 3-5 H Urine WBC >50 H Ur Squamous Epith Cells 3-5 Urine Bacteria 4+ Hyaline Casts 6-10 Ethyl Alcohol 50 COVID-19 (ROSS) Negative COVID-19 Clin Com See Note Influenza Type A (STEPHANIE) Negative Influenza Type B (STEPHANIE) Negative Influenza A & B Note See Note 02/17/23 07:22 MCV 79.7 L MCH 28.4 MCHC 35.6 RDW 16.3 H Plt Count 36 L MPV 10.2 Immature Gran % (Auto) 0.3 Neut % (Auto) 67.8 Lymph % (Auto) 17.2 L [place] % (Auto) 13.8 H Eos % (Auto) 0.6 Baso % (Auto) 0.3 Lymph # (Auto) 0.6 L [place] # (Auto) 0.5 Eos # (Auto) 0.0 Baso # (Auto) 0.0 Abs Immat Gran (auto) 0.01 Absolute Neuts (auto) 2.4 Absolute Nucleated RBC 0.000 Nucleated RBC % (auto) 0.0 PT INR Anion Gap 12 Estim Creat Clear Calc 113.4 Estimated GFR > 60 Random Glucose 100 Lactic Acid Lactic Acid F/U @ 2Hr Calcium 8.2 L D Magnesium Total Bilirubin AST ALT Alkaline Phosphatase Total Protein Albumin Lipase Vitamin B12 Folate Urine Color Urine Appearance Urine pH Ur Specific [place] Urine Protein Urine Glucose (UA) Urine Ketones Urine Blood Urine Nitrite Ur Leukocyte Esterase Urine RBC Urine WBC Ur Squamous Epith Cells Urine Bacteria Hyaline Casts Ethyl Alcohol COVID-19 (ROSS) COVID-19 Clin Com Influenza Type A (STEPHANIE) Influenza Type B (STEPHANIE) Influenza A & B Note Assessment and Plan (1) Abdominal pain: Status: Acute Plan 52M PMH etoh dependence, etoh cirrhosis, presented with fever, abd pain sepsis due to pneumonia zosyn follow up cultures etoh dependence with withdrawal phenobarb ciwa etoh cirrhosis avoid etoh, outpatient follow up gallbladder polyp us in 6-12 months dvt prophylaxis - mechanical due to thrombocytopenia full code reason for continued hospitalization:awaiting defervesence Time Spent With Patient Time: Total time managing care of this patient today ____ minutes. Quality Stroke Does the patient have a stroke diagnosis?: No VTE Prior VTE?: No VTE Risk Level:: Medical - moderate - high VTE Device Contraindication: N/A - Device Ordered VTE Drug Contraindication: Treatment Not Indicated
--- NOTE | 2023-02-17 13:59 | MHC.RECOVRN ---
Met with pt and , along with operations manager assistant, in 343 after consult placed to Addiction Medicine for alcohol use. Pt presented to the hospital and subsequently admitted for management/treatment of abdominal pain, sepsis due to pneumonia, and alcohol withdrawal. Pt laying in bed, awake, alert, easily engages in conversation. Pt reports abdominal pain is better. Pt reports family hx alcohol use, mother, father, and sister. Pt reports he has used alcohol most of his life and is currently drinking 3-6 nips of rum and 5 24 oz beers daily. 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 Pt has never received tx for AUD, however, states I know I'm an alcoholic. Denies AUD related hospitalizations. Pt reports he drinks less when he is in pain as the alcohol makes it worse so current amount is a decrease from one month ago. Pt is interested in reducing the amount he drinks, not necessarily abstinence. Discussed recovery supports, including [facility]. Pt provided with written information. Pt is interested in [facility], Evelyn Kelley APRN aware. Pt denies other questions or concerns at this time.
[2023-02-17 16:00] VITALS: BP 136/70; PULSE 92; RESP 18; TEMP 36.6; O2SAT 97
--- NOTE | 2023-02-17 16:11 | MHC.CM.PN ---
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
[2023-02-17 20:25] VITALS: BP 143/68; PULSE 89; RESP 18; TEMP 37; O2SAT 99
[2023-02-18] MEDS: Piperacillin Sodium/Tazobactam 3.375 GM in 0.9 % Sodium Chloride 50 ML IV (04:56)
[2023-02-18 05:41] LABS: Hematocrit 28.1 % (42.0-52.0); Hemoglobin 9.8 g/dl (14.0-18.0); Mean Corpuscular HGB Conc 34.9 g/dl (31.0-36.0); PLT CLUMP 1
[2023-02-18 05:43] LABS: Mean Corpuscular Hemoglobin 27.8 pg (27.0-33.0); Mean Corpuscular Volume 79.6 fL (80.0-98.0); Mean Platelet Volume 10.3 fL (9.4-12.4); Platelet Count 49 X10*3/uL (160-400); Red Blood Count 3.53 X10*6/uL (4.60-5.80); Red Cell Distribution Width 16.2 % (11.0-16.0); White Blood Count 5.4 X10*3/uL (4.8-10.8)
[2023-02-18 06:11] LABS: Alanine Aminotransferase 17 U/L (0-40); Albumin Level 2.8 g/dL (3.5-5.0); Alkaline Phosphatase 91 U/L (39-117); Anion Gap 12 (12-20); Aspartate Amino Transferase 57 U/L (5-37); Bilirubin Direct 1.4 mg/dL (0.0-0.5); Bilirubin Total 2.2 mg/dL (0.0-1.0); Blood Urea Nitrogen 7 mg/dL (9-16); Calcium 8.3 mg/dL (8.4-10.2); Carbon Dioxide 18 mmol/L (22-29); Chloride 109 mmol/L (96-108); Creatinine Clr Calc Pharmacy 113.4; Estimated Glomerular Filt Rate > 60; Glucose Fasting 90 mg/dL (60-99); Potassium 3.5 mmol/L (3.3-5.1); Sodium 135 mmol/L (135-145); Total Protein 6.8 g/dL (6.5-8.0)
[2023-02-18 06:22] LABS: INTERNATIONAL NORM RATIO 1.6 (0.9-1.1); Prothrombin Time 19.2 SEC (11.1-13.3)
[2023-02-18 07:38] VITALS: BP 124/58; PULSE 75; RESP 17; TEMP 37.1; O2SAT 98
[2023-02-18] MEDS: 0.9 % Sodium Chloride Flush 3 ML SYRINGE IVFLUSH (08:04)
[2023-02-18] MEDS: PHENobarbitaL 15 MG TABLET 45 MG PO (08:04)
[2023-02-18] MEDS: Multivitamin TABLET 1 TAB PO (08:04)
[2023-02-18] MEDS: Folic Acid 1 MG TABLET PO (08:05)
[2023-02-18] MEDS: Famotidine 20 MG TABLET PO (08:05)
[2023-02-18] MEDS: Thiamine HCL 100 MG in 0.9 % Sodium Chloride 100 ML 202 MG IV (08:07)
--- NOTE | 2023-02-18 09:40 | P.DS_ITS ---
DS: Providers Provider Date of Service: 02/18/23 Date of admission: 02/16/23 19:17 Primary care physician: Unknown Physician Consults: 02/16/23 22:44 Addiction Medicine Routine Consulting Provider: Addiction Covering Reason for consultation: Alcohol use disorder DS: Diagnosis Discharge Diagnosis (1) Abdominal pain: Status: Acute DS: Summary Hospital Course Hospital Course: from initial hpi: 52-year-old male with a PMH significant for?previous [place], alcohol use disorder, pancytopenia, and alcoholic cirrhosis currently not on any chronic home medications who presents to the ED for evaluation of abdominal pain and fever. Patient states abdominal pain has been ongoing intermittently for the past month. States it feels like someone is ?punching me in my ribs?. Pain is on both right and left side without radiation. Patient also has been experiencing intermittent nausea and vomiting, says he sometimes ?regurgitates? his food. Patient also states he has been experiencing nasal congestion for the past month with occasional cough productive of whitish sputum that he describes as ?drool?. Patient admits to heavy alcohol use, currently drinking 6 tall boys and 4-6 nips daily. Denies hx of alcohol withdrawal. Patient presents to the hospital today due to worsening abdominal pain and registering a fever this morning. In the ED patient with temperature up to 101.9, tachycardic up to 112, and slightly hypertensive up to 147/74, satting at 97% on RA. Labs were significant for stable pancytopenia of WBC 4.6, H&H 10.1/29.5, platelets 42, lactic acid 2.2, magnesium 1.5, bilirubin 3.1, AST 89, alk-phos 144, troponin detectable at 19.1. Ethyl alcohol 50. CXR showed small right mid lung opacity, small focus of pneumonia not excluded. Abdominal ultrasound showed cirrhotic liver with evidence of portal hypertension including recannulized umbilical vein and enlarged main portal vein, cholelithiasis without evidence of acute cholecystitis, 0.4 cm gallbladder polyp versus adherent stone; suggest follow-up ultrasound in 6-12 months if patient with risk factors for gallbladder malignancy. EKG demonstrated normal sinus rhythm without evidence of ST elevations or depressions. Pt was treated with an ibuprofen, IVF, hip taste so, Mag sulfate, is started on phenobarb protocol. Pt will be admitted to the hospital for treatment and further evaluation of sepsis likely secondary to a bdominal infection. hospital course: Patient was admitted for sepsis due to pneumonia. History was Zosyn and sepsis resolved. He is feeling much better will be discharged on 5 more days of Augmentin. Course complicated by alcohol dependence with withdrawal. He was treated with phenobarbital and withdrawal symptoms resolved. For alcoholic cirrhosis is recommended to avoid alcohol follow up outpatient. for gallbladder polyp ultrasound is recommended in 6-12 months. Patient is feeling better will be discharged home. Time Spent with Patient Time attestation: Total time managing care of this patient today ____ minutes. Discharge coordination time: Greater than 30 minutes Quality: Safe Use of Opioids Does Pt have an Active Cancer Diagnosis on the Problem List?: No Quality: Stroke Does the patient have a stroke diagnosis?: No Physical Exam Vital Signs: Vital Signs: Last Vital Signs Temp 98.7 F 02/18/23 07:38 Pulse 75 02/18/23 07:38 Resp 17 02/18/23 07:38 BP 124/58 L 02/18/23 07:38 Pulse Ox 98 02/18/23 07:38 O2 Del Method Room Air 02/18/23 07:38 BMI result Body Mass Index 27.1 General: AO X 3, no acute distress Resp: CTA bilateral, no accessory muscles used CVS: S1,S2,RRR GI: soft, non tender, non distended Neuro: motor grossly intact, alert Psych: appropriate affect, appropriate insight DS: Data Data Completed and Pending Labs on day of discharge: Laboratory Results - last 24 hr 02/18/23 05:03 WBC 5.4 RBC 3.53 L Hgb 9.8 L Hct 28.1 L MCV 79.6 L MCH 27.8 MCHC 34.9 RDW 16.2 H Plt Count 49 L D MPV 10.3 Absolute Nucleated RBC 0.000 Nucleated RBC % (auto) 0.0 PT 19.2 H INR 1.6 H Sodium 135 Potassium 3.5 Chloride 109 H Carbon Dioxide 18 L Anion Gap 12 BUN 7 L Creatinine 0.72 Estim Creat Clear Calc 113.4 Estimated GFR > 60 Fasting Glucose 90 Calcium 8.3 L Total Bilirubin 2.2 H Direct Bilirubin 1.4 H AST 57 H ALT 17 Alkaline Phosphatase 91 Total Protein 6.8 Albumin 2.8 L Preliminary micro results at discharge 02/16/23 14:58 Blood Culture - Preliminary Blood - Venous No growth after 24 hours. 02/16/23 14:38 Blood Culture - Preliminary Blood - Venous No growth after 24 hours. Discharge Plan Discharge Anticipated Discharge Date/Time: 02/18/23 09:20 Patient Disposition: Home, Self-Care Discharge Diagnosis: etoh withdrawal Referrals: Physician,Unknown J [Primary Care Provider] - 1 Week Discharge Medications: New amoxicillin-pot clavulanate 875-125 mg tablet 1 tab PO Q12H Qty: 10 0RF Discharge Orders: Discharge Order (Routine); Ordered 02/18/23 Ordered By: Ismael Bermudez Diet: Advance to usual diet Activity on Discharge: As tolerated Stand Alone Forms: Patient Portal Discharge page Care Plan Goals: recovery Health Concerns: pna, etoh cirrhosis Plan of Treatment: 5 more days augmentin, stop etoh Assessment: see above
--- NOTE | 2023-02-18 10:20 | MHC.CM.PN ---
PT WILL DC HOME TODAY WITH NO SERVICES VIA FAMILY TRANSPORT
== END 2023-02-18 10:42 | disposition home or self-care (01) | DRG 720 ==
LOC: HO.ED 14:48 → HO.EDOVER 19:18 → HO.S3 19:31
PROVIDERS: Physician Assistant; Registered Nurse Emergency; Admitting Provider Student in an Organized Health Care Education/Training Program; Emergency Provider Student in an Organized Health Care Education/Training Program; Visit Provider Internal Medicine
DX: A41.9 Sepsis, unspecified organism (principal); D61.818 Other pancytopenia; K76.6 Portal hypertension; J18.9 Pneumonia, unspecified organism; K70.30 Alcoholic cirrhosis of liver without ascites; Y90.2 Blood alcohol level of 40-59 mg/100 ml; K82.4 Cholesterolosis of gallbladder; F10.239 Alcohol dependence with withdrawal, unspecified; I25.2 Old myocardial infarction; Z20.822 Contact with and (suspected) exposure to COVID-19
CPT/HCPCS: 36415; 71046; 74176; 76705; 80048; 80053; 80076; 80307; 81001; 82607; 82746; 83605; 83690; 83735; 84484; 85025; 85027; 85610; 87040; 87086; 87088; 87186; 87502; 87635; 93005; 99285; J2543; J2560; J3411; J3475

== ENCOUNTER → 2023-02-16 19:17 | Outpatient (BNV) | payer MEDICAID, SELFPAY | PROVIDERS: Admitting Provider Student in an Organized Health Care Education/Training Program; Emergency Provider Student in an Organized Health Care Education/Training Program; Visit Provider Student in an Organized Health Care Education/Training Program | DX: R10.9 Unspecified abdominal pain (principal) | CPT/HCPCS: 99223; 99233; 99239 ==

== ENCOUNTER 2024-02-19 13:01 | Outpatient (REF) | payer SELFPAY ==
[2024-02-19 16:42] LABS: MANUAL DIFF FLAG NO
[2024-02-19 16:53] LABS: Basophils Percent Auto 0.8 % (0-2); Eosinophils Absolute Auto 0.1 X10*3/uL (0.0-0.4); Eosinophils Percent Auto 1.3 % (0-4); Hematocrit 34.2 % (42.0-52.0); Hemoglobin 11.8 g/dl (14.0-18.0); Imm Gran Abs Auto 0.01 X10*3/uL (0.00-0.03); Imm Gran Pct Auto 0.3 % (0.0-0.4); Lymphocytes Absolute Auto 0.9 X10*3/uL (1.2-4.9); Lymphocytes Percent Auto 23.6 % (20-40); Mean Corpuscular HGB Conc 34.5 g/dl (31.0-36.0); Mean Corpuscular Hemoglobin 28.4 pg (27.0-33.0); Mean Corpuscular Volume 82.4 fL (80.0-98.0); Mean Platelet Volume 10.7 fL (9.4-12.4); Monocytes Absolute Auto 0.4 X10*3/uL (0.1-1.2); Monocytes Percent Auto 10.9 % (2-11); Neutrophils Absolute Auto 2.5 x10*3/uL (2.0-8.3); Neutrophils Percent Auto 63.1 % (45-73); Platelet Count 60 X10*3/uL (160-400); Red Blood Count 4.15 X10*6/uL (4.60-5.80); Red Cell Distribution Width 15.3 % (11.0-16.0); White Blood Count 3.9 X10*3/uL (4.8-10.8)
[2024-02-19 16:54] LABS: Estimated Average Glucose 82 mg/dL; Hemoglobin A1C 81.6806 umol/L; Hemoglobin A1c % 4.5 % (<6.0)
[2024-02-19 16:59] LABS: Alanine Aminotransferase 31 U/L (0-40); Albumin Level 3.9 g/dL (3.5-5.0); Alkaline Phosphatase 148 U/L (39-117); Anion Gap 15 (12-20); Aspartate Amino Transferase 107 U/L (5-37); Bilirubin Total 3.2 mg/dL (0.0-1.0); Blood Urea Nitrogen 5 mg/dL (9-16); Calcium 9.8 mg/dL (8.4-10.2); Carbon Dioxide 23 mmol/L (22-29); Chloride 105 mmol/L (96-108); Estimated Glomerular Filt Rate > 60; Glucose Random 94 mg/dL (60-115); Potassium 3.8 mmol/L (3.3-5.1); Sodium 139 mmol/L (135-145); Total Protein 8.3 g/dL (6.5-8.0)
[2024-02-19 17:32] LABS: Folate 7.5 ng/mL (> or = 4.0); Vitamin B12 833 pg/mL (200-900)
== END 2024-02-19 13:02 | disposition home or self-care (01) ==
LOC: HO.HHCL 13:01
PROVIDERS: Visit Provider Nurse Practitioner Family
DX: F10.10 Alcohol abuse, uncomplicated (principal)
CPT/HCPCS: 36415; 80053; 82607; 82746; 83036; 85025

== ENCOUNTER 2024-03-31 13:44 | Outpatient (AMB) | payer MEDICAID, SELFPAY ==
--- NOTE | 2024-03-31 14:03 | MHC.OFFVIS ---
Intake Visit Reasons: STRIKE PLANNING APPLICATIONS/HHC Re-referral for VV Intake Note: New patient presents for VV. Patient has bilateral varicose veins. Left leg has visible rope-like veins. He gets swelling and pain in both. Allergies No Known Allergies Allergy (Verified 03/31/24 14:08) HPI HPI STRIKE PLANNING APPLICATIONS/HHC Re-referral for VV: Details: Luis Carlos, a pleasant 53yo Syriac speaking only male patient, is presenting today for painful VV. Rani is being utilized as an per diem interpreter. Complaints include pain over varicosities, swelling of lower extremities, cramping, fatigue, and heaviness of the lower extremities. It has been affecting their daily activities including walking, standing, and physical activity. It is noted more so in left leg. He is a nonsmoker and is nondiabetic. Patient denies any previous venous surgery or injections. Patient denies any history of DVT/ PE. Patient denies any history of phlebitis. Trial of compression includes - nothing yet They now present for vascular evaluation regarding their varicose veins. PFSH Medical History H/O myocardial infarction, greater than 8 weeks Pancytopenia Cirrhosis, alcoholic Alcohol abuse Surgical History No history of previous surgery Family History Father History of throat cancer Mother Hx of cancer of lung Stroke Maternal Grandmother Diabetes Social History Household Members: Spouse Housing: House Do you presently have visiting nurse or other home services: No Alcohol intake: current Alcohol intake frequency: 3 or more drinks per day Alcohol type: beer and wine Patient Tobacco Use Status: Never used Tobacco service: No Current occupational status: unemployed Review of Systems Const Reports as per HPI and Denies weakness ENT Reports Normal hearing present and Denies dizziness Card Reports as per HPI, Denies chest pain, Denies chest pain at rest, Denies chest pain with activity, Denies dyspnea and Denies dyspnea on exertion Resp Reports as per HPI, Denies cough, Denies dyspnea and Denies dyspnea on exertion GI Reports as per HPI, Denies abdominal pain, Denies nausea and Denies vomiting Musc Denies numbness Skin/Breast Reports as per HPI, Denies erythema and Denies wounds Neuro Reports Normal hearing present, Denies dizziness, Denies numbness, Denies Sensory deficit (Neuro) and Denies weakness Psych Reports no additional complaints Endo Reports no additional complaints Physical Exam Const General: healthy appearing and no acute distress Orientation/consciousness: patient oriented x3 HEENT Head: Yes normal to inspection Ears: hearing grossly normal bilaterally Mouth: Normal oral and palatal mucosa present Resp Effort & Inspection: normal respiratory effort and able to speak in complete sentences Auscultation: clear to auscultation bilaterally Cardio Jugular venous distension: no JVD Rate: regular rate Rhythm: regular rhythm Heart sounds: S1 normal heart sound present and S2 normal heart sound present Bruits: no abdominal aortic bruits, no carotid bruits, no femoral bruits and no renal bruits Peripheral pulses: Peripheral pulses 2+ throughout GI Inspection: Yes normal to inspection Palpation (GI): No Abdominal aortic bruit present Skin General skin exam: no rashes or lesions noted Wounds: no wounds Hair: normal Neuro General: patient oriented x3 Cranial nerves: Yes Normal hearing present Cognition (Neuro): normal cognition Gait exam (Neuro): Normal gait present Motor exam (neuro): 5/5 motor strength present throughout Sensory Exam: No Sensory deficit (Neuro) Extrem Other: Right lower extremity: Small tortuosity is noted on the medial aspect of the knee and just [id number]. Palpable DP pulses. Slight discoloration noted in the ankle area. Left lower extremity: Large tortuosities, appx 6+cm, noted on the medial aspect from the knee assisted down the chen. Pain on palpation. Palpable DP pulses. Skin discoloration noted just above the ankle to the foot. CEAP: C - 4 E - primary A - superficial P - reflux General: Yes normal to inspection, Yes full ROM, Yes capillary refill normal and Yes normal gait Assessment & Plan Assessment & Plan (1) Varicose veins of both lower extremities with inflammation: Code(s): I83.11 - Varicose veins of right lower extremity with inflammation; I83.12 - Varicose veins of left lower extremity with inflammation Category: Medical Plan: Luis Carlos is presenting today for concerns of bulging and painful varicose veins that has been going on for approximately 8 years now, getting worse. In short, the patient has evidence of venous insufficiency. I have discussed the pathophysiology with the patient. In addition I have provided informational material regarding venous disease to the patient. We have discussed conservative measures including compression, elevation, and exercise. I have also provided a handout regarding appropriate use of compression stockings and where to purchase good compression stockings as well. I had Rani explain about compression stockings in Syriac. I have taken the liberty of ordering venous insufficiency testing with the patient. They will follow up with me after testing. The patient had an opportunity to ask questions regarding the treatment plan. All questions were answered. No major barriers to understanding were identified. The patient expressed understanding and agreement with the above treatment plan. The patient is aware they should contact our office by phone for worsening of the current condition or the appearance of new symptoms. Thank you for allowing me to participate in the vascular care of this patient. If you have any questions or concerns regarding the treatment for the above condition please do not hesitate to contact me. The office telephone contact is [phone]. This note is constructed using voice recognition software. While every effort has been made to ensure accuracy, co founder errors may have been included. Thank you for allowing me to participate in the care of your patient. Yours sincerely, OBIE Last Orders: Orders US venous duplex LE BI 1 Week I83.11 - Varicose veins of right lower extremity with inflammation, I83.12 - Varicose veins of left lower extremity with inflammation Coding Level of Care Code New Pt Level 4 (51624) Diagnoses Varicose veins of both lower extremities with inflammation I83.11; I83.12
== END 2024-03-31 14:18 | disposition home or self-care (01) ==
PROVIDERS: PCP Nurse Practitioner Family; Visit Provider Physician Assistant Surgical
DX: I83.11 Varicose veins of right lower extremity with inflammation (principal); I83.12 Varicose veins of left lower extremity with inflammation
CPT/HCPCS: 99204

== ENCOUNTER → 2024-03-31 13:44 | Outpatient (BNVA) | payer MEDICAID, SELFPAY | PROVIDERS: PCP Nurse Practitioner Family; Visit Provider Physician Assistant Surgical | DX: I83.11 Varicose veins of right lower extremity with inflammation (principal); I83.12 Varicose veins of left lower extremity with inflammation | CPT/HCPCS: 99212 ==

== ENCOUNTER 2024-04-17 12:57 | Outpatient (REF) | payer MEDICAID, SELFPAY | END 2024-04-17 12:58 | disposition home or self-care (01) | LOC: HO.US 12:57 | PROVIDERS: PCP Nurse Practitioner Family; Visit Provider Physician Assistant Surgical | DX: I83.11 Varicose veins of right lower extremity with inflammation (principal); I83.12 Varicose veins of left lower extremity with inflammation | CPT/HCPCS: 93970 ==

== ENCOUNTER 2024-06-04 09:23 | Outpatient (REF) | payer MEDICAID, SELFPAY ==
--- OUTSIDE RECORDS SUMMARY | 2024-06-04 10:52 | XMS_ITS | Encounter Summary ---
Author Organization [employer] Address [address] [place] [id number] Care Team Providers Care Bookkeeper Assistant Name Role Phone Brianne Craig NP Primary Care Provider [phone] Reason for Referral * Consultation (Routine) - Pending Review Specialty Diagnoses / Procedures Referred By Jacque álvarez Referred To Contact Gastroenterology Diagnoses Alcoholic cirrhosis, unspecified whether ascites present (CMS/HCC) Brianne Craig NP [address] [place] [address] Phone: tel: fax: Referral ID Status Reason Start Date Expiration Date Visits Requested Visits Authorized [id number] Pending Review Specialty Services Required 06/02/2024 06/02/2025 1 1 Encounter Details Date Type Department Care Team ([facility] st Contact Info) Description 06/02/2024 4:00 PM EST Office Visit [facility] MEDICINE [address] [place], [place] [phone] Brianne Craig NP [address] [place], [place] [phone] Alcoholic cirrhosis, unspecified whether ascites present (CMS/HCC) (Primary Dx) Social History Tobacco Use Types Packs/Day Years Used Date Smoking Tobacco: Never Passive Smoke Exposure: Never Alcohol Answer Date Recorded How often do you have a drink containing alcohol ? 4 04/09/2024 How many drinks containing a lcohol do you have on a typical day when you are drinking? 2 04/09/2024 How often do you have six or more drinks on one occasion? 2 04/09/2024 Depression Answer Date Recorded Patient Health Questionnaire-9 Score 17 04/09/2024 Patient Health Questionnaire-9 Score 17 04/09/2024 Last PHQ-9: Questionnaire Data Not on file 1 06/10/2023 Housing Stability Answer Date Recorded What is your housing situation today? I have mathew murphy 02/19/[address] you li ve. Do you have problems with any of the following? None of the above 02/19/2024 Food Insecurity Answer Date Recorded Within the past 12 months, y ou worried that your food would run out before you got money to buy more: Never True 02/19/2024 Within the past 12 months,th e food you bought just didn't last and you didn't have enough money to get more: Never True Transportation Answer Date Recorded In the past 12 months, has l ack of transportation kept you from medical appts, meetings, work or from getting things needed for daily living? No 02/19/2024 Utilities Answer Date Recorded In the past 12 months, has t he electric, gas, oil or water company threatened to shut off services in your home? No 02/19/2024 Depression Answer Date Recorded Patient Health Questionnaire-2 Score 3 04/09/2024 Internet Access Answer Date Recorded Internet Access Q1 Yes 02/19/2024 Internet Access Q2 Not on file 02/19/2024 Sex and Gender Information Value Date Recorded Sex Assigned at Male 03/06/2022 10:33 AM EDT Legal Sex Male 10:33 AM EDT Gender Identity Male 03/06/2022 10:33 AM EDT Sexual Orientation Straight 03/06/2022 10 :33 AM EDT documented as of this encounter Last Filed Vital Signs Vital Sign Reading Time Taken Comments Blood Pressure 131/77 06/02/2024 4:15 PM EST Pulse 87 06/02/2024 4:15 PM EST Temperature 36.8 ??C (98.3 ??F) 06/02/2024 4:15 PM ES T Respiratory Rate 16 06/02/2024 4:15 PM EST Oxygen Saturation 98% 06/02/2024 4:15 PM EST Inhaled Oxygen Concentration - - Weight 84.6 kg (186 lb 6.4 oz) 06/02/2024 4:15 P M EST Height 172.7 cm (5' 8 ) 06/02/2024 4:15 PM EST Body Mass Index 28.34 06/02/2024 4:15 PM EST documented in this encounter Plan of Treatment Upcoming Encounters Date Type Department Care Team (Late st Contact Info) Description 08/28/2024 11:15 AM EDT Office Visit [facility] OPTOMETRY [address] [place] [address] Nicky Vallejo, OD [address] [place] [address] Scheduled Orders Name Type Priority Associated Diagnoses Orde r Schedule CBC auto differential Lab Routine Alcoholic cirrhosis, unspecified whether ascites present (CMS/HCC) Expected: 06/02/2024 (Approximate), Expires: 06/02/2025 Comprehensive Metabolic Panel Lab Routine Alcoholic cirrhosis, unspecified whether ascites present (CMS/HCC) Expected: 06/02/2024 (Approximate), Expires: 06/02/2025 Scheduled Referrals Name Type Priority Associated Diagnoses Order Schedule Referral to Gastroenterology Outpatient Referral Routine Alcoholic cirrhosis, unspecified whether ascites present (CMS/HCC) Expected: 06/02/2024 (Approximate), Expires: 06/02/2025 documented as of this encounter Visit Diagnoses Diagnosis Alcoholic cirrhosis, unspecified whether ascites present (CMS/HCC)- Primary documented in this encounter Additional Health Concerns Assessment Noted Time PHQ-9 Depression Total Score: 17 04/09/ 024 3:49 PM EST documented as of this encounter Care Teams Bookkeeper Assistant Relationship Specialty Start Date End Date Brianne Craig NP [address] [place] [id number] PCP - General Family Medicine 06/05/23 documented as of this encounter
--- OUTSIDE RECORDS SUMMARY | 2024-06-04 10:52 | XMS_ITS | Encounter Summary ---
Author Organization [employer] Address [address] [facility] [address] [place] [address] Care Team Providers Care Stull Installer Name Role Phone Brianne Craig ROWENA Primary Care Provider [phone] Encounter Details Date Type Department Care Team (Latest Contact Info) Description 05/30/2024 Travel Social History Tobacco Use Types Packs/Day Years [...] AM EDT documented as of this encounter Plan of Treatment Upcoming Encounters Date Type Department Care Team (Late st Contact Info) Description 08/28/2024 11:15 AM EDT Office Visit [facility] OPTOMETRY [address] [place] [address] Nicky Vallejo, OD [address] [place] [address] documented as of this encounter Visit Diagnoses Not on filedocumented in this encounter Additional Health Concerns Assessment Noted Time PHQ-9 Depression Total Score: 17 024 3:49 PM EST documented as of this encounter Care Teams Stull Installer Relationship Specialty Start Date End Date Brianne Craig NP [address] [place] [address] PCP - General Family Medicine 06/05/23 documented as of this encounter
--- OUTSIDE RECORDS SUMMARY | 2024-06-04 10:52 | XMS_ITS | Encounter Summary ---
Author Organization [employer] Address [address] [facility] [address] [place] [address] Care Team Providers Care Swine Genetics Researcher Name Role Phone Brianne Craig ROWENA Primary Care Provider [phone] Encounter Details Date Type Department Care Team (Latest Contact Info) Description 06/02/2024 Travel Social History Tobacco Use Types Packs/Day [...] Description 08/28/2024 11:15 AM EDT Office Visit [facility] OPTOMETRY [address] [place] [address] Nicky Vallejo, OD [address] [place] [address] documented as of this encounter Visit Diagnoses Not on filedocumented in this encounter Additional Health Concerns Assessment Noted Time PHQ-9 Depression Total Score: 17 024 3:49 PM EST documented as of this encounter Care Teams Swine Genetics Researcher Relationship Specialty Start Date End Date Brianne Craig NP [address] [place] [address] PCP - General Family Medicine 06/05/23 documented as of this encounter
--- OUTSIDE RECORDS SUMMARY | 2024-06-04 10:52 | XMS_ITS ---
Moderate depressive episode 10/23/2019 Assessment & Plan (04/10/2024 8:40 AM EST): PROGRESS NOTE: ID: Luis Carlos is a 53 y.o. Decline to answer straight-identified cis-male with previous documented hx of Depression and Alcohol Use Disorder No previous hx of services who presents for Anxiety, Depression, and Substance Use Disorder During I[facility] Consult Luis Carlos presenting with depressed mood, crying spells , irritable mood, loss of interests/pleasure , sense of isolation/loneliness , change in appetite or weight reduce appetite, changes in sleep difficulty falling asleep and difficulty staying asleep , psychomotor agitation, fatigue/loss of energy, worthlessness, difficulty concentrating, recurrent thoughts of , excessive worry/anxiety, difficulty controlling worry, anxiety/worry associated to restlessness and/or feeling keyed-up/On edge , easily fatigued , difficulty concentrating and/or mind going blank , irritability, muscle tension , and sleep disturbance difficulty falling asleep and difficulty staying asleep , and Fear , and using in larger amounts or for longer than intended, unsuccessful attempt/s to cut down/stop use, cravings and urges to use, continued use despite physical or psychological problem (potentially related or made worse by use) , withdrawal sxs , in regard to Alcohol drinking 5 24oz of beer daily, ptn also reported crying spells when thingking about his mother; for a period of 18+ mo, for most or all symptoms in the context of recent family , active addiction of alcohol. PLAN: (check all that apply) New/Additional Services needed Off-site services for Behavioral Health Integration Plan Internal Cold handoff OBAT External OP therapy referral Patient Self Plan Patient to utilize skills provided in intervention , Patient to reach out to [facility] team as needed, Patient to engage in OP therapy , and Patient to reach out to [facility] as needed Resolved Problems Problem Noted Date Diagnosed Date Resolved Date Burning sensation of eye 02/19/2024 Assessment & Plan (02/19/2024 12:09 PM EDT): Rx as written below Encounters * This document contains information received from the source organization and may not represent a complete record from that organization. Date Type Department Care Team Description 06/02/2024 4:00 PM EST Office Visit [facility] MEDICINE [address] [place] [address] Brianne Craig, ROWENA Alcoholic cirrhosis, unspecified whether ascites present (CMS/HCC) (Primary Dx) 06/02/2024 Travel 05/30/2024 10:30 AM EST Office Visit [facility] OPTOMETRY [address] [place] [address] Tarka, Nicky, OD Punctal stenosis, acquired, bilateral (Primary Dx); Toxic optic neuropathy; Open angle with borderline findings, low risk, bilateral; Presbyopia 05/30/2024 Travel 05/21/2024 Telephone [facility] MEDICINE [address] [place] [address] Brianna Sexton MA Chart Prep 04/17/2024 Orders Only [facility] External Provider, [facility] 03/24/2024 4:00 PM EST Office Visit [facility] MEDICINE [address] [place] [address] Brianne Craig NP Alcoholic cirrhosis, unspecified whether ascites present (CMS/HCC) (Primary Dx); Dermatitis; Plaque psoriasis 03/24/2024 Travel 03/20/2024 Telephone [facility] MEDICINE [address] [place] [address] Eduard Marte MA chart prep from Last 3 Months Immunizations Name Administration Dates Next Due Hep B, adult 02/25/2020,12/30/2019,11/28/2019 Asaf SARS-CoV-2 Vaccination 08/14/2020 Tdap 11/28/2019,10/28/2019 Social History Tobacco Use Types Packs/Day Years Used Date Smoking Tobacco: Never Passive Smoke Exposure: Never Tobacco Cessation:Counseling Given: Not Answered Alcohol Answer Date Recorded How often do [...] Orientation Straight 03/06/2022 10 :33 AM EDT Last Filed Vital Signs Vital Sign Reading [...] Mass Index 28.34 06/02/2024 4:15 PM EST Plan of Treatment Upcoming Encounters Date Type Department Care Team (Late st Contact Info) Description 08/28/2024 11:15 AM EDT Office Visit [facility] OPTOMETRY [address] [place] [address] Nicky Vallejo, OD [address] [place] [address] Health Maintenance Due Date Last Done Comments CT Colonography 1968 Colonoscopy 1968 FIT DNA/Cologuard 1968 FOBT 1968 Sigmoidoscopy 1970 Hepatitis A Vaccines (1 of 2 - Risk 2-dose series) 11/10/1987 Zoster Vaccines (1 of 2) 2018 Hepatitis B Vaccines (3 of 3 - 19+ 3-dose series) 05/30/2020 02/25/2020, 12/30/2019, 11/28/2019 Colorectal Cancer Screening 02/08/2021 FIT 02/08/2021 02/09/2020 COVID-19 Vaccine (2 - 2023-2 5 season) 2024 08/14/2020 Influenza Vaccine (#1) 2024 Depression Monitoring (PHQ-9) 10/08/2024, 04/09/2024 Lipid Panel 10/29/2024 10/30/2019 Alcohol/Substance Use Screening 02/18/2025 02/19/2024 SDOH Screening 02/18/2025 02/19/2024 Depression Screening 04/09/2025 04/09/2024, 04/09/2024 Tobacco Screening 06/02/2025 06/02/2024 DTaP/Tdap/Td Vaccines (3 - T d or Tdap) 11/27/2029 11/28/2019, 10/28/2019 RSV Patients and Patients Aged 60 years or older (1 - 1-dose 75+ series) 11/10/2043 HIV Screening Completed 10/30/2019 Hepatitis C Screening Completed 03/30/2020 , 10/30/2019 HIB Vaccines Aged Out No longer eligi ble based on patient's age to complete this topic HPV Vaccines Aged Out No longer eligi ble based on patient's age to complete this topic IPV Vaccines Aged Out No longer eligi ble based on patient's age to complete this topic Meningococcal Vaccine Aged Out No beatris elsie eligible based on patient's age to complete this topic Pneumococcal Vaccine: Pediatrics (0 to 5 Years) and At-Risk Patients (6 to 49) Years) Aged Out No longer eligible b ased on patient's age to complete this topic RSV under 20 months Aged Out No longe r eligible based on patient's age to complete this topic Rotavirus Vaccines Aged Out No longer eligible based on patient's age to complete this topic Procedures Procedure Name Priority Date/Time Associated Diagnosis Comments [facility] LOWER EXTREMITY VENOUS INSUFFICIENCY BILATERAL Routine 04/17/2024 1:24 PM EST JAGJIT HISTORICAL HEPATITIS A,B,C PROFILE Routine 03/30/2020 4:30 PM EST FELIPE HISTORICAL FECAL IMMUNOCHEMICAL TEST X1 (FIT) Routine 02/09/2020 12:00 AM EDT HIV 1/2 ANTIGEN/ANTIBODY, FOURTH GENERATION W/RFL Routine 10/30/2019 2:12 PM EDT LIPID PANEL, STANDARD Routine 10/30/2019 2:12 PM EDT from Last 3 Months or Most Recently Relevant to Health Maintenance Results * [facility] Lower Extremity Venous Insufficiency Bilateral (04/17/2024 1:24 PM EST) 04/17/2024 1:24 PM EST Narrative [facility] - 06/03/2024 1:33 PM EST ? [facility] ?[address] ?[place] [address] ? Ultrasound Report ? Signed ? Patient: Veloz,Luis Carlos ?MR#: [id number] ? : 1970 ?Acct:[id number] ? Age/Sex: 53 / M ?ADM Date: 12/12/24 ? Loc: HO.US ? Attending Dr: Latosha Preciado PA-C ? Ordering Physician: Latosha Preciado PA-C ?? Date of Service: 04/17/24 ?? Procedure(s): US venous insuf bilat ?? Accession Number(s): [id number] ? cc: Brianne Craig ENERGY AND SUSTAINABILITY MANAGER; Latosha Preciado PA-C ? EXAMINATION: ?? US LOWER EXTREMITY VENOUS (REFLUX EXAM), BILATERAL ? CLINICAL INFORMATION: ?? Varices with inflammation, right lower extremity. ? COMPARISON: ?? Venous ultrasound dated October 31, 2022 and November 11, 2021. ? TECHNIQUE: ?? Color flow triplex imaging and compression Doppler was performed to ?? evaluate both the deep and the superficial systems bilaterally. To ?? evaluate the superficial system, the examination was performed in the ?? upright position. Color-flow Doppler ultrasound and compression ?? ultrasound were utilized. In addition, maneuvers were utilized to ?? demonstrate reflux. ? FINDINGS: ? 1. DEEP VENOUS ULTRASOUND OF THE RIGHT LOWER EXTREMITY: ?? Common Femoral Vein: Compressible, normal respiratory variation and ?? augmented flow. ? Femoral Vein: Compressible, normal color flow and augmentation. ?? Popliteal Vein: Compressible, normal augmentation. ? Deep Reflux: There is a 1056 ms reflux at the popliteal vein. ? There is no evidence of a Byers's cyst. ? 2. SUPERFICIAL ULTRASOUND WITH DOPPLER OF RIGHT LOWER EXTREMITY: ? GREAT SAPHENOUS VEIN: ?? Saphenofemoral Junction: 0.9 cm; Reflux: 0 ms ?? Proximal Thigh: 0.3 cm; Reflux: 0 ms ?? Mid Thigh: 0.2 cm; Reflux: 0 ms ?? Distal Thigh: 0.2 cm; Reflux: 728 ms ?? At Knee: 0.2 cm; Reflux: 824 ms ?? Proximal Calf: 0.2 cm; Reflux: 0 ms ?? Mid Calf: 0.2 cm; Reflux: 2824 ms ?? Distal Calf: 0.2 cm; Reflux: 2884 ms ? DUPLICATED MEDIAL GREAT SAPHENOUS VEIN: ?? Diameter: None imaged ?? Reflux: NA ? DUPLICATED LATERAL GREAT SAPHENOUS VEIN: ?? Diameter: 0.2 cm. ?? Reflux: NA ? SMALL SAPHENOUS VEIN: ?? Saphenopopliteal Junction: 0.2 cm; Reflux: 0 ms ?? Proximal: 0.1 cm; Reflux: 0 ms ?? Distal: 0.1 cm; Reflux: 0 ms ? VEIN OF GIACOMINI: ?? Size: NA ?? Reflux: NA ? PERFORATORS: ?? Location: Small saphenous vein, greater saphenous vein throughout the ?? thigh and the mid calf. ?? Size: 0.1, 0.2, 0.7, 0.2, 0.3, 0.5 and 0.1 cm respectively. ?? Reflux: 1548 ms at the proximal calf region. ? VARICOSITIES: ?? Location: None imaged. ?? Size: NA ?? Reflux: NA ? 3. DEEP VENOUS ULTRASOUND OF THE LEFT LOWER EXTREMITY: ?? Common Femoral Vein: Compressible, normal respiratory variation and ?? augmented flow. ? Femoral Vein: Compressible, normal color flow and augmentation. ?? Popliteal Vein: Compressible, normal augmentation. ? Deep Reflux: There is 1584 ms reflux of the common femoral vein. There ?? is a 2116 ms reflux at the mid femoral vein. There is a 2340 ms at the ?? mid femoral vein (duplicated). There is 888 ms reflux at the popliteal ?? vein. ? There is no evidence of a Byers's cyst. ? 4. SUPERFICIAL ULTRASOUND WITH DOPPLER OF LEFT LOWER EXTREMITY: ? GREAT SAPHENOUS VEIN: ?? Saphenofemoral Junction: 1.0 cm; Reflux: 2132 ms ?? Proximal Thigh: 0.4 cm; Reflux: 0 ms ?? Mid Thigh: 0.1 cm; Reflux: 0 ms ?? Distal Thigh: 0.1 cm; Reflux: 0 ms ?? At Knee: 0.1 cm; Reflux: 0 ms ?? Proximal Calf: 0.1 cm; Reflux: 0 ms ?? Mid Calf: 0.1 cm; Reflux: 824 ms ?? Distal Calf: 0.2 cm; Reflux: 0 ms ? DUPLICATED MEDIAL GREAT SAPHENOUS VEIN: ?? Diameter: None imaged ?? Reflux: NA ? DUPLICATED LATERAL GREAT SAPHENOUS VEIN: ?? Diameter: None imaged. ?? Reflux: NA ? SMALL SAPHENOUS VEIN: ?? Saphenopopliteal Junction: 0.2 cm; Reflux: 0 ms ?? Proximal: 0.1 cm; Reflux: 0 ms ?? Distal: 0.1 cm; Reflux: 0 ms ? VEIN OF GIACOMINI: ?? Size: NA ?? Reflux: NA ? PERFORATORS: ?? Location: Small saphenous vein, mid segment and greater saphenous vein ?? throughout the thigh and midcalf. ?? Size: 0.4, 0.2, 0.2, 0.3, 0.2, 0.2, 0.3 and 0.5 cm respectively. ?? Reflux: There is a 2376 ms at the distal thigh and 1080 ms in the ?? proximal calf. ? VARICOSITIES: ?? Location: Accessory saphenous vein, laterally and great saphenous vein ?? proximal calf. ?? Size: 0.4 and 1.2 cm respectively. ?? Reflux: 2688 ms in the proximal calf. ? / venous insuf bilat ?? IMPRESSION: ?? Right: Venous insufficiency, great saphenous vein from above the knee ?? to the ankle. Venous insufficiency in the popliteal vein (deep venous ?? system. ?? Multiple perforators with reflux in the proximal calf. ? Left: Venous insufficiency, great saphenous vein at the junction and ?? mid calf. Venous insufficiency in the deep venous system from the ?? common femoral vein to the popliteal vein. ?? Multiple perforators with the reflux at the distal thigh and proximal ?? calf. Varices in the proximal calf with reflux. ? Electronically signed by: ??Owen Martin MD ??06/03/2024 01:30 PM ?? EST ? Dictated By: ?Owen Andrade MD ? Signed By: ?<Electronically signed by Owen Tolbert MD in OV> ? 06/03/24 1330 ? DD/ 1324 ? TD/TT: 04/17/24 1503 ? Quill Cleaning Machine Operator: ? Procedure Note [facility], Image - 06/03/[address] [address] Ultrasound Report Signed Patient: Khris Veloz#: [id number] : 1970Acct:[id number] Age/Sex: 53 / MADM Date: 04/17/24 Loc: HO.US Attending Dr: Latosha Preciado PA-C Ordering Physician: Latosha Preciado PA-C Date of Service: 04/17/24 Procedure(s): US venous insuf bilat Accession Number(s): [id number] cc: Brianne Craig NP; Latosha Preciado PA-C EXAMINATION: US LOWER EXTREMITY VENOUS (REFLUX EXAM), BILATERAL CLINICAL INFORMATION: Varices with inflammation, right lower extremity. COMPARISON: Venous ultrasound dated October 31, 2022 and November 11, 2021. TECHNIQUE: Color flow triplex imaging and compression Doppler was performed to evaluate both the deep and the superficial systems bilaterally. To evaluate the superficial system, the examination was performed in the upright position. Color-flow Doppler ultrasound and compression ultrasound were utilized. In addition, maneuvers were utilized to demonstrate reflux. FINDINGS: 1. DEEP VENOUS ULTRASOUND OF THE RIGHT LOWER EXTREMITY: Common Femoral Vein: Compressible, normal respiratory variation and augmented flow. Femoral Vein: Compressible, normal color flow and augmentation. Popliteal Vein: Compressible, normal augmentation. Deep Reflux: There is a 1056 ms reflux at the popliteal vein. There is no evidence of a Byers's cyst. 2. SUPERFICIAL ULTRASOUND WITH DOPPLER OF RIGHT LOWER EXTREMITY: GREAT SAPHENOUS VEIN: Saphenofemoral Junction: 0.9 cm; Reflux: 0 ms Proximal Thigh: 0.3 cm; Reflux: 0 ms Mid Thigh: 0.2 cm; Reflux: 0 ms Distal Thigh: 0.2 cm; Reflux: 728 ms At Knee: 0.2 cm; Reflux: 824 ms Proximal Calf: 0.2 cm; Reflux: 0 ms Mid Calf: 0.2 cm; Reflux: 2824 ms Distal Calf: 0.2 cm; Reflux: 2884 ms DUPLICATED MEDIAL GREAT SAPHENOUS VEIN: Diameter: None imaged Reflux: NA DUPLICATED LATERAL GREAT SAPHENOUS VEIN: Diameter: 0.2 cm. Reflux: NA SMALL SAPHENOUS VEIN: Saphenopopliteal Junction: 0.2 cm; Reflux: 0 ms Proximal: 0.1 cm; Reflux: 0 ms Distal: 0.1 cm; Reflux: 0 ms VEIN OF GIACOMINI: Size: NA Reflux: NA PERFORATORS: Location: Small saphenous vein, greater saphenous vein throughout the thigh and the mid calf. Size: 0.1, 0.2, 0.7, 0.2, 0.3, 0.5 and 0.1 cm respectively. Reflux: 1548 ms at the proximal calf region. VARICOSITIES: Location: None imaged. Size: NA Reflux: NA 3. DEEP VENOUS ULTRASOUND OF THE LEFT LOWER EXTREMITY: Common Femoral Vein: Compressible, normal respiratory variation and augmented flow. Femoral Vein: Compressible, normal color flow and augmentation. Popliteal Vein: Compressible, normal augmentation. Deep Reflux: There is 1584 ms reflux of the common femoral vein. There is a 2116 ms reflux at the mid femoral vein. There is a 2340 ms at the mid femoral vein (duplicated). There is 888 ms reflux at the popliteal vein. There is no evidence of a Byers's cyst. 4. SUPERFICIAL ULTRASOUND WITH DOPPLER OF LEFT LOWER EXTREMITY: GREAT SAPHENOUS VEIN: Saphenofemoral Junction: 1.0 cm; Reflux: 2132 ms Proximal Thigh: 0.4 cm; Reflux: 0 ms Mid Thigh: 0.1 cm; Reflux: 0 ms Distal Thigh: 0.1 cm; Reflux: 0 ms At Knee: 0.1 cm; Reflux: 0 ms Proximal Calf: 0.1 cm; Reflux: 0 ms Mid Calf: 0.1 cm; Reflux: 824 ms Distal Calf: 0.2 cm; Reflux: 0 ms DUPLICATED MEDIAL GREAT SAPHENOUS VEIN: Diameter: None imaged Reflux: NA DUPLICATED LATERAL GREAT SAPHENOUS VEIN: Diameter: None imaged. Reflux: NA SMALL SAPHENOUS VEIN: Saphenopopliteal Junction: 0.2 cm; Reflux: 0 ms Proximal: 0.1 cm; Reflux: 0 ms Distal: 0.1 cm; Reflux: 0 ms VEIN OF GIACOMINI: Size: NA Reflux: NA PERFORATORS: Location: Small saphenous vein, mid segment and greater saphenous vein throughout the thigh and midcalf. Size: 0.4, 0.2, 0.2, 0.3, 0.2, 0.2, 0.3 and 0.5 cm respectively. Reflux: There is a 2376 ms at the distal thigh and 1080 ms in the proximal calf. VARICOSITIES: Location: Accessory saphenous vein, laterally and great saphenous vein proximal calf. Size: 0.4 and 1.2 cm respectively. Reflux: 2688 ms in the proximal calf. US/US venous insuf bilat IMPRESSION: Right: Venous insufficiency, great saphenous vein from above the knee to the ankle. Venous insufficiency in the popliteal vein (deep venous system. Multiple perforators with reflux in the proximal calf. Left: Venous insufficiency, great saphenous vein at the junction and mid calf. Venous insufficiency in the deep venous system from the common femoral vein to the popliteal vein. Multiple perforators with the reflux at the distal thigh and proximal calf. Varices in the proximal calf with reflux. 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 Cleaning Machine Operator: [facility] External Provider CV VASC ULAR PROCEDURES Final Result Performing Organization Address City/[facility]/ZIP Co de Phone Number [facility] [address] [place] [address] * Hepatitis A,B,C Profile (03/30/2020 4:30 PM EST) Pathologist [facility] Hepatitis B Core Antibody Nonreactive Nonreactive [facility] Hepatitis B Surface Antibody REACTIVE Nonreactive [facility] Comment:REACTIVE: > 11.99 mI U/mL Hepatitis B Surface Antigen Negative Negative [facility] Hepatitis C Antibody Nonreactive Nonreactive [facility] Comment: Antibodies to HCV not detected; does not exclude early acute HCV infection. 03/30/2020 4:30 PM EST Historical Provider HISTORICAL/NON ORDERABLE LABS Final Result [facility] [address] * Fecal immunochemical test x1 (FIT) (02/09/2020 12:00 AM EDT) FIT Date 1 02/09/20 [facility] FIT Date 2 02/09/20 [facility] FIT Lot [id number] [facility] FIT1 NEGATIVE NEGATIVE [facility] FIT2 NEGATIVE NEGATIVE [facility] 02/09/2020 us Historical Provider HISTORICAL/NON ORDERABLE LABS Final Result [facility] [address] * HIV 1/2 ANTIGEN/ANTIBODY,FOURTH GENERATION W/RFL (10/30/2019 2:12 PM EDT) HIV-1/2 ANTIGEN AND ANTIBODIES, 4TH GENERATION W/ REFLEX NON-REACT AARON NON-REACT AARON [facility] Comment: HIV-1 antigen and HIV-1/HIV-2 antibodies were not detected. There is no laboratory evidence of HIV infection. ?? PLEASE NOTE: This information has been disclosed to you from records whose confidentiality may be protected by state law. ??If your state requires such protection, then the state law prohibits you from making any further disclosure of the information without the specific written consent of the person to whom it pertains, or as otherwise permitted by law. A general authorization for the release of medical or other information is NOT sufficient for this purpose. ? For additional information please refer to http://[employer].Qianxs.com/faq/SKH141 (This link is being provided for informational/ educational purposes only.) ? The performance of this assay has not been clinically validated in patients less than 2 years old. ?? HIV-1/2 ANTIGEN AND ANTIBODIES, 4TH GENERATION W/ REFLEX NON-REACT AARON NON-REACT AARON [facility] Comment: HIV-1 antigen and HIV-1/HIV-2 antibodies were not detected. There is no laboratory evidence of HIV infection. ?? PLEASE NOTE: This information has been disclosed to you from records whose confidentiality may be protected by state law. ??If your state requires such protection, then the state law prohibits you from making any further disclosure of the information without the specific written consent of the person to whom it pertains, or as otherwise permitted by law. A general authorization for the release of medical or other information is NOT sufficient for this purpose. ? For additional information please refer to http://[employer].Qianxs.com/faq/KIX124 (This link is being provided for informational/ educational purposes only.) ? The performance of this assay has not been clinically validated in patients less than 2 years old. ?? HIV-1/2 ANTIGEN AND ANTIBODIES, 4TH GENERATION W/ REFLEX NON-REACT AARON NON-REACT AARON [facility] Comment: HIV-1 antigen and HIV-1/HIV-2 antibodies were not detected. There is no laboratory evidence of HIV infection. ?? PLEASE NOTE: This information has been disclosed to you from records whose confidentiality may be protected by state law. ??If your state requires such protection, then the state law prohibits you from making any further disclosure of the information without the specific written consent of the person to whom it pertains, or as otherwise permitted by law. A general authorization for the release of medical or other information is NOT sufficient for this purpose. ? For additional information please refer to http://[employer].Qianxs.com/faq/YMG158 (This link is being provided for informational/ educational purposes only.) ? The performance of this assay has not been clinically validated in patients less than 2 years old. ?? 10/30/2019 2:12 PM EDT us Hamilton Torres MD LAB BLOOD ORDERABLES Final R esult [facility] [address] * LIPID PANEL, STANDARD (10/30/2019 2:12 PM EDT) LDL Cholesterol 61 mg/dL (calc) [facility] Comment: Reference range: <100 ?? Desirable range <100 mg/dL for primary prevention; ?? <70 mg/dL for patients with CHD or diabetic patients ?? with > or = 2 CHD risk factors. ?? LDL-C is now calculated using the Josh ?? calculation, which is a validated novel method providing ?? better accuracy than the Friedewald equation in the ?? estimation of LDL-C. ?? Donnie DERAS et al. REBEL. 2013;310(19): 3565-3951 ?? (http://[employer].TouchBistro/faq/JCY467) Chol/HDLC Ratio 2.7 <5.0 (calc) [facility] Cholesterol, Total 120 <200 mg/dL [facility] Triglycerides 72 <150 mg/dL [facility] Triglycerides 72 <150 mg/dL [facility] LDL Cholesterol 61 mg/dL (calc) [facility] Comment: Reference range: <100 ?? Desirable range <100 mg/dL for primary prevention; ?? <70 mg/dL for patients with CHD or diabetic patients ?? with > or = 2 CHD risk factors. ?? LDL-C is now calculated using the Donnie-Domingo ?? calculation, which is a validated novel method providing ?? better accuracy than the Friedewald equation in the ?? estimation of LDL-C. ?? Donnie DERAS et al. REBEL. 2013;310(19): 9885-8654 ?? (http://[employer].TouchBistro/faq/GLF942) Non-HDL Cholesterol 76 <130 mg/dL (calc) [facility] Comment: For patients with diabetes plus 1 major ASCVD risk ?? factor, treating to a non-HDL-C goal of <100 mg/dL ?? (LDL-C of <70 mg/dL) is considered a therapeutic ?? option. Non-HDL Cholesterol 76 <130 mg/dL (calc) [facility] Comment: For patients with diabetes plus 1 major ASCVD risk ?? factor, treating to a non-HDL-C goal of <100 mg/dL ?? (LDL-C of <70 mg/dL) is considered a therapeutic ?? option. Cholesterol, Total 120 <200 mg/dL [facility] LDL Cholesterol 61 mg/dL (calc) [facility] Comment: Reference range: <100 ?? Desirable range <100 mg/dL for primary prevention; ?? <70 mg/dL for patients with CHD or diabetic patients ?? with > or = 2 CHD risk factors. ?? LDL-C is now calculated using the Donnie-Domingo ?? calculation, which is a validated novel method providing ?? better accuracy than the Friedewald equation in the ?? estimation of LDL-C. ?? Donnie DERAS et al. REBEL. 2013;310(19): 8578-6161 ?? (http://[employer]/faq/GAQ332) Cholesterol, Total 120 <200 mg/dL [facility] HDL Cholesterol 44 > OR = 40 mg/dL [facility] HDL Cholesterol 44 > OR = 40 mg/dL [facility] Chol/HDLC Ratio 2.7 <5.0 (calc) [facility] Non-HDL Cholesterol 76 <130 mg/dL (calc) [facility] Comment: For patients with diabetes plus 1 major ASCVD risk ?? factor, treating to a non-HDL-C goal of <100 mg/dL ?? (LDL-C of <70 mg/dL) is considered a therapeutic ?? option. HDL Cholesterol 44 > OR = 40 mg/dL [facility] Triglycerides 72 <150 mg/dL [facility] Chol/HDLC Ratio 2.7 <5.0 (calc) [facility] 10/30/2019 2:12 PM EDT us Hamilton Torres MD LAB BLOOD ORDERABLES Final R esult [facility] [address] from Last 3 Months or Most Recently Relevant to Health Maintenance Insurance [address] [place], [place] [address] Care Teams Plasticator Relationship Specialty Start Date End Date Brianne Craig NP [address] [place] [address] PCP - General Family Medicine 06/05/23
--- OUTSIDE RECORDS SUMMARY | 2024-06-04 10:53 | XMS_ITS | Encounter Summary ---
Author Organization [employer] Address [address] [facility] [address], [place] [address] Care Team Providers Care Fitness Leader Name Role Phone Brianne Craig ROWENA Primary Care Provider [phone] Reason for Visit * Reason Onset Date Comments Chart Prep 05/21/2024 Encounter Details Date Type Department Care Team ([facility] st Contact Info) Description 05/21/2024 Telephone [facility] [address] [place], [place] [phone] Brianna Sexton MA Chart Prep Social History Tobacco Use Types Packs/Day Years [...] AM EDT documented as of this encounter Miscellaneous Notes * Telephone Encounter - Brianna Sexton MA - 05/21/2024 3:15 PM EST Chart Prep Labs: done Images: not done Vaccines due: Covid Due, Hep A Due, Hep B Due, and Flu Due Referrals: Behavior Health complete Screenings: Colonoscopy Overdue care gaps: None documented in this encounter Plan of Treatment Upcoming Encounters Date Type Department Care Team (Late st Contact Info) Description 08/28/2024 11:15 AM EDT Office Visit [facility] [address] [place] [address] Nicky Vallejo OD [address] [place] [address] documented as of this encounter Visit Diagnoses Not on filedocumented in this encounter Additional Health Concerns Assessment Noted Time PHQ-9 Depression Total Score: 17 024 3:49 PM EST documented as of this encounter Care Teams Fitness Leader Relationship Specialty Start Date End Date Brianne Craig NP [address] [place] [address] PCP - General Family Medicine 06/05/23 documented as of this encounter
--- OUTSIDE RECORDS SUMMARY | 2024-06-04 10:53 | XMS_ITS | Encounter Summary ---
Author Organization [employer] Address [address] [facility] [address] [place] [address] Care Team Providers Care Cloth Mender Name Role Phone Brianne Craig ROWENA Primary Care Provider Encounter Details Date Type Department Care Team ([facility] Contact Info) Description 04/17/2024 Orders Only [facility] External Provider, [facility] Social History Tobacco Use Types Packs/Day Years [...] Description 08/28/2024 11:15 AM EDT Office Visit [facility] [address] [place] [address] Nicky Vallejo, OD [address] [place] [address] documented as of this encounter Procedures Procedure Name Priority Date/Time Associated Diagnosis Comments [facility] LOWER EXTREMITY VENOUS INSUFFICIENCY BILATERAL Routine 04/17/2024 1:24 PM EST documented in this encounter Results * [facility] Lower Extremity Venous Insufficiency Bilateral (04/17/2024 1:24 PM EST) 04/17/2024 1:24 PM EST Narrative [facility] - 06/03/2024 1:33 PM EST ? [facility] ?[address] ?[place] [address] ? Ultrasound Report ? Signed ? Patient: Veloz,Luis Carlos ?MR#: [id number] ? : 1970 ?Acct:[id number] ? Age/Sex: 53 / M ?ADM Date: 12/12/24 ? Loc: HO.US ? Attending Dr: Latosha Preciado PA-C ? Ordering Physician: Latosha Preciado PA-C ?? Date of Service: 04/17/24 ?? Procedure(s): US venous insuf bilat ?? Accession Number(s): [id number] ? cc: Brianne Craig NP; Latosha Preciado PA-C ? EXAMINATION: ?? US [...] DD/ 1324 ? TD/TT: 04/17/24 1503 ? Air And Water Tester: ? Procedure Note Andressa Hbuer - 06/03/[address] [address] Ultrasound Report Signed Patient: Khris Veloz#: [id number] : 1970Acct:[id number] Age/Sex: 53 / MADM Date: 04/17/24 Loc: HO.US Attending Dr: Latosha Preciado PA-C Ordering Physician: Latosha Preciado PA-C Date of Service: 04/17/24 Procedure(s): US venous insuf nay Accession Number(s): [id number] cc: Brianne Craig NP; Latosha Preciado PA-C [...] 06/03/24 1330 DD/ 1324 TD/TT: 04/17/24 1503 Air And Water Tester: [facility] External Provider CV VASC ULAR PROCEDURES Final Result Performing Organization Address City/State/[facility] Co de Phone Number [facility] [address] [place] [address] documented in this encounter Visit Diagnoses Not on filedocumented in this encounter Additional Health Concerns Assessment Noted Time PHQ-9 Depression Total Score: 17 04/09/ 024 3:49 PM EST documented as of this encounter Care Teams Cloth Mender Relationship Specialty Start Date End Date Brianne Craig NP [address] [place] [address] PCP - General Family Medicine 06/05/23 documented as of this encounter
--- OUTSIDE RECORDS SUMMARY | 2024-06-04 10:53 | XMS_ITS | Encounter Summary ---
Author Organization [employer] Address [address] [place] [address] Care Team Providers Care Position Description Manager Name Role Phone Brianne Craig NP Primary Care Provider [phone] Reason for Referral * Consultation (Routine) - Pending Review Specialty Diagnoses / Procedures Referred By Jacque álvarez Referred To Contact Ophthalmology Diagnoses Punctal stenosis, acquired, bilateral Nicky Vallejo OD [address] [place] [address] Phone: tel: fax: Yolette Alston [address] [place] [phone] Referral ID Status Reason Start Date Expiration Date Visits Requested Visits Authorized [id number] Pending Review Specialty Services Required 05/30/2024 05/30/2025 1 1 Encounter Details Date Type Department Care Team ([facility] st Contact Info) Description 05/30/2024 10:30 AM EST Office Visit [facility] [address] [place] [address] Nicky Vallejo OD [address] [place] [id number] Punctal stenosis, acquired, bilateral (Primary Dx); Toxic optic neuropathy; Open angle with borderline findings, low risk, bilateral; Presbyopia Social History Tobacco Use Types Packs/Day Years [...] Description 08/28/2024 11:15 AM EDT Office Visit [facility] [address] [place] [address] Nicky Vallejo, OD [address] [place] [address] Scheduled Orders Name Type Priority Associated Diagnoses Orde r Schedule OCT, Optic Nerve - OU - Both Eyes Ophthalmology Routine Toxic optic neuropathy Ordered: 05/30/2024 Scheduled Referrals Name Type Priority Associated Diagnoses Order Schedule Referral to Ophthalmology Outpatient Referral Routine Punctal stenosis, acquired, bilateral Expected: 05/30/2024 (Approximate), Expires: 05/30/2025 documented as of this encounter Visit Diagnoses Diagnosis Punctal stenosis, acquired, bilateral- Primary 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
== END 2024-06-04 09:24 | disposition home or self-care (01) ==
LOC: HO.HHCL 09:23
PROVIDERS: Visit Provider Nurse Practitioner Family
DX: Z13.89 Encounter for screening for other disorder (principal)

== ENCOUNTER 2024-06-04 09:25 | Outpatient (REF) | payer MEDICAID, SELFPAY ==
[2024-06-04 11:30] LABS: MANUAL DIFF FLAG NO
[2024-06-04 11:43] LABS: Basophils Percent Auto 0.2 % (0-2); Eosinophils Absolute Auto 0.1 X10*3/uL (0.0-0.4); Hematocrit 32.3 % (42.0-52.0); Hemoglobin 10.9 g/dl (14.0-18.0); Imm Gran Abs Auto 0.01 X10*3/uL (0.00-0.03); Imm Gran Pct Auto 0.2 % (0.0-0.4); Lymphocytes Absolute Auto 1.6 X10*3/uL (1.2-4.9); Lymphocytes Percent Auto 38.6 % (20-40); Mean Corpuscular HGB Conc 33.7 g/dl (31.0-36.0); Mean Corpuscular Volume 76.9 fL (80.0-98.0); Mean Platelet Volume 8.9 fL (9.4-12.4); Monocytes Absolute Auto 0.5 X10*3/uL (0.1-1.2); Monocytes Percent Auto 13.4 % (2-11); Neutrophils Absolute Auto 1.8 x10*3/uL (2.0-8.3); Neutrophils Percent Auto 45.6 % (45-73); Red Cell Distribution Width 17.8 % (11.0-16.0)
[2024-06-04 11:44] LABS: Platelet Count 86 X10*3/uL (160-400)
[2024-06-04 12:13] LABS: Alanine Aminotransferase 25 U/L (0-40); Albumin Level 3.5 g/dL (3.5-5.0); Alkaline Phosphatase 152 U/L (39-117); Anion Gap 10 (12-20); Aspartate Amino Transferase 82 U/L (5-37); Bilirubin Total 2.1 mg/dL (0.0-1.0); Blood Urea Nitrogen 6 mg/dL (9-16); Calcium 8.8 mg/dL (8.4-10.2); Carbon Dioxide 23 mmol/L (22-29); Chloride 107 mmol/L (96-108); Estimated Glomerular Filt Rate > 60; Glucose Random 100 mg/dL (60-115); Potassium 4.1 mmol/L (3.3-5.1); Sodium 136 mmol/L (135-145); Total Protein 8.1 g/dL (6.5-8.0)
== END 2024-06-04 09:26 | disposition home or self-care (01) ==
LOC: HO.HHCL 09:25
PROVIDERS: Visit Provider Nurse Practitioner Family
DX: K70.30 Alcoholic cirrhosis of liver without ascites (principal)
CPT/HCPCS: 36415; 80053; 85025